=== PATIENT | male | born 1990 | race Hispanic/Latino ===

== ENCOUNTER 2025-03-07 09:19 | Inpatient (IN) | payer OTHER ==
[~2025-03-07] VITALS: Ht 188 cm; Wt 106.6 kg
--- NOTE | 2025-03-07 09:30 | ERN ---
General Chief Complaint: Chest Pain Stated Complaint: LEFT SIDE CHEST PAIN FOR "MONTHS" Time Seen by MD: 09:22 Source: patient History of Present Illness Initial Comments PATIENT IS A 34-YEAR-OLD MALE COMING IN WITH LEFT-SIDED CHEST PAIN. HE STATES THAT THE CHEST PAIN HAS BEEN ONGOING FOR GREATER THAN A MONTH HE ALSO STATES THAT HE HAS BEEN EVALUATED SEVERAL TIMES AND HE DOES NOT HAS A BAD HIS CASE OF ANXIETY. NO FEVER NO CHILLS NO NAUSEA VOMITING. Allergies: Coded Allergies: Penicillins (Unverified Allergy, Unknown, 03/07/25) Past Medical History Past Medical History: Other Past Surgical History: Other ROS Dictation CONSTITUTIONAL: NO CHILLS, NO FEVER, NO WEAKNESS, NO DIAPHORESIS, NO MALAISE. HEAD/FACE: NO SIGNS OF TRAUMA. EENT: NO EYE PAIN, NO BLURRED VISION, NO TEARING, NO DOUBLE VISION, NO EAR PAIN, NO EAR DISCHARGE, NO NOSE PAIN, NO NASAL CONGESTION, NO THROAT PAIN, NO THROAT SWELLING, NO MOUTH PAIN. RESPIRATORY: NO COUGH, NO ORTHOPNEA, NO SOB, NO STRIDOR, NO WHEEZING. CARDIOVASCULAR: NO CHEST PAIN, NO EDEMA, NO PALPITATIONS, NO SYNCOPE. GASTROINTESTINAL/ABDOMINAL: NO ABDOMINAL PAIN, NO CONSTIPATION, NO DIARRHEA, NO NAUSEA, NO VOMITING. GENITOURINARY: NO ABNORMAL DISCHARGE, NO DYSURIA, NO FREQUENT URINATION, NO HEMATURIA. NO COMPLAINTS OF PAIN IN THE GENITALS. MUSCULOSKELETAL: NO BACK PAIN, NO GOUT, NO JOINT PAIN, NO JOINT SWELLING, NO MUSCLE PAIN, NO MUSCLE STIFFNESS, NO NECK PAIN. INTEGUMENTARY: NO CHANGE IN COLOR, NO CHANGE IN HAIR/NAILS, NO DRYNESS, NO LESION, NO LUMPS, NO RASH. NEUROLOGICAL/PSYCH: NO ANXIETY, NOT DEPRESSED, NO EMOTIONAL PROBLEM, NO HEADACHE, NO NUMBNESS, NO PRE-EXISTING DEFICIT, NO HISTORY OF SEIZURES, NO TREMORS, NO WEAKNESS. HEMATOLOGIC/LYMPHATIC: NOT ANEMIC, NO HISTORY OF BLOOD CLOTS, NO APPARENT BLEEDING, NO BRUISING, GLANDS NOT SWOLLEN. ALL SYSTEMS NEGATIVE, EXCEPT NOTED. Physical Exam Physical Exam Dictation VITAL SIGNS: REVIEWED. GENERAL APPEARANCE: ALERT, ORIENTED X3, NO ACUTE DISTRESS, OBESE. HEAD AND FACE: NON-TRAUMATIC. EYES: PERRL, PINK CONJUNCTIVAS, EYELID NO TRAUMA, ANTERIOR CHAMBER CLEAR. EARS: PINNAS INTACT AND NO SIGNS OF TRAUMA OR ERYTHEMA. EAR CANALS CLEAR AND NO DISCHARGE. TMS NO ERYTHEMA. NOSE: NO DISCHARGE, NO BLEEDING. OROPHARYNX: MOUTH NORMAL, TEETH NO CARIES, TONGUE PINK. PHARYNX CLEAR, NO ERYTHEMA. TONSILS NO EXUDATES, NO ABSCESSES NOTED. MUCOUS MEMBRANE MOIST. NECK: SUPPLE, NON-TENDER, NO THYROMEGALY, NO MASSES, NO JVD, NO BRUITS. BREAST: DEFERRED. CHEST: NO TENDERNESS, NO CREPITUS, NO PARADOXICAL MOVEMENT, NO RETRACTIONS. LUNGS: CLEAR, WELL-VENTILATED, SYMMETRIC, NO RALES, NO WHEEZING, NO RHONCHI, NO STRIDOR, GOOD BREATH SOUNDS BILATERALLY. HEART: REGULAR RATE, REGULAR RHYTHM, NO MURMUR, NO GALLOPS. VASCULAR: NO PERIPHERAL EDEMA. ABDOMEN: SOFT, POSITIVE BOWEL SOUNDS, NONDISTENDED, NO GUARDING, NONTENDER, NO REBOUND, NO MASSES NO HEPATOMEGALY, NO SPLENOMEGALY, NO ALONSO'S SIGN, NO HERNIAS. RECTAL: DEFERRED. GENITAL: DEFERRED. NEUROLOGICAL: NORMAL SPEECH, GROSS MOTOR FUNCTION INTACT, GROSS SENSORY FUNCTION INTACT. MUSCULOSKELETAL: NECK NONTENDER, FULL RANGE OF MOTION, BACK NONTENDER, FULL RANGE OF MOTION. EXTREMITIES: NONTENDER, FULL RANGE OF MOTION. SKIN: COLOR PINK, DRY, NO TURGOR, NO RASH, NO LACERATIONS, NO ABRASIONS, NO CONTUSIONS. LYMPHATICS: DEFERRED. Results Laboratory and Microbiology Lab and Micro Result Laboratory Tests Test 03/07/25 10:07 03/07/25 10:16 Urine Color COLORLESS (YELLOW) Urine Appearance CLEAR (CLEAR) Urine pH 7.0 (5.0-8.0) Urine Specific [place] 1.007 (1.001-1.031) Urine Protein NEGATIVE mg/dL (NEGATIVE) Urine Glucose (UA) NEGATIVE mg/dL (NEGATIVE) Urine Ketones NEGATIVE mg/dL (NEGATIVE) Urine Occult Blood +- (TRACE) (NEGATIVE) H Urine Nitrate NEGATIVE (NEGATIVE) Urine Bilirubin NEGATIVE mg/dL (NEGATIVE) Urine Urobilinogen 0.2 mg/dL (0.2-1.0) Urine Leukocyte Esterase NEGATIVE Gildardo/uL Urine RBC 0-1 /HPF (0-1) Urine WBC None Seen /HPF (0-1) Urine Bacteria None Seen /HPF (None Seen) Urine Opiates Screen NEGATIVE (NEGATIVE) Urine Barbiturates Screen NEGATIVE (NEGATIVE) Urine Phencyclidine Screen NEGATIVE (NEGATIVE) Urine Amphetamines Screen NEGATIVE (NEGATIVE) Urine Benzodiazepines Screen NEGATIVE (NEGATIVE) Urine Cocaine Screen NEGATIVE (NEGATIVE) Urine Marijuana (THC) Screen POSITIVE (NEGATIVE) H White Blood Count 4.2 K/uL (4.8-10.8) L Red Blood Count 4.87 MIL/uL (4.50-6.20) Hemoglobin 14.6 g/dL (14.0-18.0) Hematocrit 43.1 % (42-54) Mean Corpuscular Volume 88.5 fL (79-99) Mean Corpuscular Hemoglobin 30.0 pg (27.0-33.0) Mean Corpuscular Hemoglobin Concent 33.9 g/dL (32.0-36.0) Red Cell Distribution Width 12.5 % (11.0-15.5) Platelet Count 273 K/uL (130-400) Mean Platelet Volume 10.0 fL (7.5-10.5) Immature Granulocyte % (Auto) 0.5 % (0-1) Neutrophils (%) (Auto) 56.5 % (40.0-77.0) Lymphocytes (%) (Auto) 30.0 % (21.0-51.0) Monocytes (%) (Auto) 6.7 % (3.0-13.0) Eosinophils (%) (Auto) 5.3 % (0.0-8.0) Basophils (%) (Auto) 1.0 % (0.0-5.0) Neutrophils # (Auto) 2.4 K/uL (1.8-7.7) Lymphocytes # (Auto) 1.3 K/uL (1.0-4.8) Monocytes # (Auto) 0.3 K/uL (0.1-1.0) Eosinophils # (Auto) 0.22 K/uL (0.00-0.70) Basophils # (Auto) 0.04 K/uL (0.00-0.20) Absolute Immature Granulocyte (auto 0.02 K/uL (0-1) Nucleated Red Blood Cells 0.0 % (0.0-0.19) Prothrombin Time 11.0 SEC (9.6-11.6) Prothromb Time International Ratio 1.04 (0.85-1.15) Activated Partial Thromboplast Time 26.4 SEC (26.3-35.5) Sodium Level 143 mmol/L (136-145) Potassium Level 4.1 mmol/L (3.5-5.1) Chloride Level 106 mmol/L (101-111) Carbon Dioxide Level 27 mmol/L (21-32) Blood Urea Nitrogen 13 mg/dL (7-18) Creatinine 1.0 mg/dL (0.5-1.3) Glomerular Filtration Rate Calc 101 mL/min (>90) Random Glucose 100 mg/dL (70-105) Total Calcium 9.7 mg/dL (8.5-10.1) Troponin I High Sensitivity 5 ng/L (4-75) B-Type Natriuretic Peptide 19 pg/mL (0-100) Labs Reviewed?: Yes EKG/XRAY/US/CT/MRI EKG Comment 03/07/2025 TIME 9:24 A.M. VENTRICULAR RATE 99 SINUS RHYTHM [place] [address] WAVE ELEVATION OR DEPRESSION X-RAY Comment [place] [address] [place] [id number] IMAGING REPORT Signed PATIENT: RAMILA PERALTA MR#: [id number] : 1990 SEX: M AGE: 34 LOCATION: [facility] ORDER 1 STATUS: [facility] REPORT#: [id number] SERVICE 0 REASON: CP ORDERING PHYSICIAN: FROYLAN JHONSON MD PROCEDURE: CXR1VW - CHEST 1VW Exam Type: CHEST 1VW Clinical Information: CP Comparison: None Findings: The lungs are clear of infiltrates. The heart is normal in size. The bony and soft tissue structures of the chest are unremarkable. Impression: Clear lungs. DICTATED BY: GOYO RAYGOZA MD DATE: 03/07/25 102 ELECTRONICALLY SIGNED BY: GOYO RAYGOZA MD DATE: 03/07/25 1028 [facility] MDM: DIFFERENTIAL DIAGNOSIS:ANXIETY, CANNABIS ABUSE RATIONALE: TESTS CONSIDERED AND ORDERED SECONDARY TO SHARED DECISION MAKING INCLUDE: PREVIOUS OUTSIDE RECORDS REVIEWED: OLD ER VISITS. RISK OF COMPLICATION AND/OR MORBIDITY OR MORTALITY OF PATIENT MANAGEMENT: NONE PATIENT IS A 34-YEAR-OLD MALE COMING IN TO BE EVALUATED FOR ANXIETY/PANIC ATTACK. HE STATES THAT HE HAS BEEN HAVING CHEST PAIN ON AND OFF FOR GREATER THAN ONE A MONTH. PATIENT HAS BEEN EVALUATED SEVERAL TIMES AT DIFFERENT ERS AND HAS BEEN DIAGNOSED WITH ANXIETY. PATIENT HAS BEEN ASYMPTOMATIC RECEIVED SOME ANXIOLYTICS PATIENT'S LABORATORY WAS POSITIVE FOR CANNABIS. I DID CONSULT HIM ON WAYS TO AVOID ANXIETY ATTACKS ONE OF THOSE WAYS IS TO AVOID CANNABIS ABUSE. ED Course Orders Procedure Category Date Status Time Cbc With Differential LAB 03/07/25 Complete 09:31 Prothrombin Time With LAB 03/07/25 Complete INR 09:31 B-Type Natriuretic LAB 03/07/25 Complete Peptide 09:31 Chest 1vw RAD 03/07/25 Resulted 09:31 12 Lead Ekg Tracing- EKG 03/07/25 Logged Technical 09:31 Magnesium LAB 03/07/25 In Process 09:31 Creatine Kinase, Total LAB 03/07/25 In Process 09:31 Troponin I High LAB 03/07/25 Complete Sensitivity 09:31 Urinalysis Profile LAB 03/07/25 Complete 09:31 Partial LAB 03/07/25 Complete Thromboplastin Time 09:31 Basic Metabolic Panel LAB 03/07/25 In Process 09:31 Drug Screen Urine LAB 03/07/25 Complete 09:31 Diazepam 2 Mg Tab PHA 03/07/25 Complete (Valium 2 Mg Tab) 10:00 Current Medications Medications (Trade) Dose Ordered Sig/James Route PRN Reason Start Time Stop Time Status Last Admin Dose Admin Diazepam (VALium 2 mg Tab) 2 mg ONCE ONCE PO 03/07/25 10:00 03/07/25 10:01 DC 03/07/25 10:12 Vital Signs Date Time Temp Pulse Resp B/P (MAP) Pulse Ox O2 Delivery O2 Flow Rate FiO2 03/07/25 10:33 98.2 60 16 133/88 98 Room Air* 0 21 03/07/25 09:36 98.2 85 18 148/97 98 Room Air* 0 21 03/07/25 09:21 98.2 85 18 148/97 100 Room Air 0 DX & DISP Disposition: Discharge Departure Impression: Primary Impression: Cannabis abuse Additional Impression: Anxiety Condition: Stable Additional Instructions: YOU HAVE BEEN REVIEWED IN THE EMERGENCY DEPARTMENT AT [facility] AFTER PRESENTING WITH CHEST PAIN. AFTER CONSIDERING YOUR HISTORY, YOUR RISK FACTORS, YOUR EKG AND YOUR BLOOD TEST TROPONINS, HAVE BEEN FOUND TO BE AT VERY LOW RISK LESS THAN (1 IN 100) OF HAVING A MAJOR ADVERSE CARDIAC EVENT (LIKE HEART ATTACK) IN THE NEAR FUTURE. IN THE " LOW RISK" GROUP, THE RISKS OF DOING FURTHER TESTS AND TREATMENT THE INPATIENT OUTWEIGHS THE BENEFITS. IN MANY PATIENTS IN THE LOW RISK GROUP FOR THE TEST OF ANY SORT OR UNNECESSARY, HOWEVER HE SHOULD DISCUSS THIS FURTHER WITH HIS GENERAL PRACTITIONER WHO WILL UNDERSTAND THE MEDICAL AND PERSONAL BACKGROUNDS BETTER. BECAUSE WE HAVE NEVER DECLARED YOU" NO RISK" WE WOULD SUGGEST. 1 RETURNING FOR MEDICAL REVIEW IF YOU HAVE FURTHER EPISODES OF CHEST PAIN/ARM PAIN OR OTHER CONCERNING SYMPTOMS LIKE DIZZINESS, COLLAPSE, PALPITATIONS OR SHORTNESS OF BREATH. 2. FOLLOWING UP WITH YOUR LOCAL DOCTOR WHO WILL CONSIDER THE NEED FOR FURTHER TESTING AND WILL ALSO ENSURE THAT ANY MODIFIABLE RISK FACTORS YOU MAY HAVE FOR HEART DISEASE ARE OPTIMALLY MANAGED. PATIENT WILL BE DISCHARGED IN STABLE CONDITION AT THE MOMENT DISCHARGE PATIENT STATES , NO CHEST PAIN Referrals: SELF,REFERRAL (PCP) ELIDIA ALVA MD Time of Disposition: 11:10 FROYLAN JOHNSON MD March 07, 2025 09:30
[2025-03-07] MEDS: diazePAM 2 MG TAB PO ONE (10:12)
--- NOTE | 2025-03-07 10:28 | HMCIMG ---
Exam Type: CHEST 1VW Clinical Information: CP Comparison: None Findings: The lungs are clear of infiltrates. The heart is normal in size. The bony and soft tissue structures of the chest are unremarkable. Impression: Clear lungs.
[2025-03-07 10:32] LABS: APPEARANCE,URINE CLEAR (CLEAR); BILIRUBIN,URINE NEGATIVE (NEGATIVE); COLOR,URINE COLORLESS (YELLOW); GLUCOSE, URINE (UA) NEGATIVE (NEGATIVE); KETONES,URINE NEGATIVE (NEGATIVE); LEUKOCYTE ESTERASE ,URINE NEGATIVE Leu/uL (NEGATIVE); NITRATE,URINE NEGATIVE (NEGATIVE); PROTEIN,URINE NEGATIVE (NEGATIVE); UROBILINOGEN,URINE 0.2 mg/dL (0.2-1.0)
[2025-03-07 10:33] LABS: BASOPHILS # (AUTO) 0.04 K/uL (0.00-0.20); EOSINOPHILS # (AUTO) 0.22 K/uL (0.00-0.70); EOSINOPHILS % (AUTO) 5.3 % (0.0-8.0); HEMATOCRIT 43.1 % (42-54); IMMATURE GRANULOCYTE ABSOLUTE 0.02 K/uL (0-1); LYMPHOCYTES # (AUTO) 1.3 K/uL (1.0-4.8); MEAN CORPUSCULAR HGB CONC 33.9 g/dL (32.0-36.0); MEAN CORPUSCULAR VOLUME 88.5 fL (79-99); MONOCYTES # (AUTO) 0.3 K/uL (0.1-1.0); MONOCYTES % (AUTO) 6.7 % (3.0-13.0); NEUTROPHILS # (AUTO) 2.4 K/uL (1.8-7.7); NEUTROPHILS % (AUTO) 56.5 % (40.0-77.0); PLATELET COUNT (AUTO) 273 K/uL (130-400); RED BLOOD CELL COUNT(AUTO) 4.87 MIL/uL (4.50-6.20); RED CELL DISTRIBUTION WIDTH 12.5 % (11.0-15.5); WHITE BLOOD COUNT (AUTO) 4.2 K/uL (4.8-10.8)
[2025-03-07 10:34] LABS: ADD UA MICROSCOPIC YES
[2025-03-07 10:39] LABS: BACTERIA,URINE None Seen /HPF (None Seen); MUCUS,URINE Rare LPF (None Seen); RBC,URINE 0-1 /HPF (0-1); WBC,URINE None Seen /HPF (0-1)
[2025-03-07 10:40] LABS: POTASSIUM 4.1 mmol/L (3.5-5.1)
[2025-03-07 10:42] LABS: AMPHET/METH SCREEN,URINE NEGATIVE (NEGATIVE); BARBITURATE SCREEN, URINE NEGATIVE (NEGATIVE); BENZODIAZEPINES SCREEN,URINE NEGATIVE (NEGATIVE); CANNABINOID SCREEN,URINE POSITIVE (NEGATIVE); COCAINE SCREEN,URINE NEGATIVE (NEGATIVE); OPIATE SCREEN,URINE NEGATIVE (NEGATIVE); PHENCYCLIDINE SCREEN,URINE NEGATIVE (NEGATIVE)
[2025-03-07 10:43] LABS: INR 1.04 (0.85-1.15)
[2025-03-07 10:44] LABS: PARTIAL THROMBOPLASTIN TIME 26.4 SEC (26.3-35.5)
[2025-03-07 10:57] LABS: B-TYPE NATRIURETIC PEPTIDE 19 pg/mL (0-100)
[2025-03-07] MEDS ORDERED: acetaMINOPHEN 325 MG TAB PO PRN (12:00)
[2025-03-07] MEDS ORDERED: morPHINE 2 MG SYG IVP PRN (12:00)
[2025-03-07] MEDS ORDERED: PoTASSium chloRIDE 20MEQ ER 20 MEQ ERTAB PO PRN (12:00)
[2025-03-07] MEDS ORDERED: PoTASSium chl 10% ELIXIR 20MEQ 20 MEQ/15 ML UDCUP PO PRN (12:00)
[2025-03-07] MEDS ORDERED: PoTASSium chloRIDE 20MEQ/100ML 100 ML IV PRN (12:00)
[2025-03-07] MEDS ORDERED: MAGNESIUM 2GM PREMIX 50ML 50 ML IV SCH (12:00)
--- NOTE | 2025-03-07 12:01 | HP ---
[facility] HISTORY AND PHYSICAL Date of Service: March 07, 2025 Time of Service: 12:01 HISTORY OF PRESENT ILLNESS: Date of service: 03/07/2025, patient was seen in ER room 15 34-year-old male with history of anxiety who presented to the ER with chief complaint of left-sided axillary/left-sided chest pain ongoing for about 3-4 months. Pain has been progressive in intensity and pain radiates into the left shoulder and he also reports having intermittent episodes of numbness involving the left arm and forearm. He has had episodes where the left hand becomes pale and cold as well. He has been seeing his PCP and has not seen a specialist. Reports that he may have either had a CT or MRI done about 5-6 months ago for further evaluation of the pain. Pain today was 7/10 in intensity and patient reports that he felt like he might pass out while on his way to the ER. Patient reports having history of anxiety and reports that he was being prescribed BuSpar but due to side effects, he has held the medication. Patient reports using marijuana intermittently as well. Patient reports family history of coronary artery disease, stroke, diabetes as well as lupus. Patient reports having history of seizure which he attributes to medication use and last seizure was about three years ago. Denies any recent history of seizure. Patient denies any fall, injury or chest wall trauma. Reports working out with last workout session about 3-4 days ago. Patient continues to have pain involving the left axilla left chest. Patient will be admitted as on further workup, labs showed acute rhabdomyolysis. Cardiac troponin was negative. EKG showed normal sinus rhythm with prolonged QTC. Due to underlying nonresolving symptoms, consultation with Cardiology will be requested, we will also obtain consultation with Neurology. REVIEW OF SYSTEMS CONSTITUTIONAL: Denies fevers, chills, or night sweats. No unintentional weight loss reported. NEUROLOGICAL: reports having numbness of the left upper extremity with tingling ENT: No hearing loss, otalgia, otorrhea, rhinitis, rhinorrhea, hoarseness, or sore throat. CARDIOVASCULAR: chest pain, chest wall pain PULMONARY: Denies any shortness of breath, cough, phlegm/sputum, hemoptysis, pleuritic chest pain. SLEEP: Denies morning headaches, daytime somnolence or napping. Denies difficu lty falling asleep, staying asleep, waking from sleep. Denies knowledge of snoring. GASTROINTESTINAL: Denies any type of dysphagia to either liquids or solids. Denies nausea, vomiting, pyrosis, early satiety, abdominal pain, diarrhea, constipation, or changes in stool consistency or caliber. Denies coffee-ground emesis, hematemesis, hematochezia, or melanotic stools. GENITOURINARY: Denies frequency, urgency, nocturia, hematuria or incontinence (Storage/Irritative symptoms.) Low urinary stream, straining to void, urinary intermittency or hesitancy, splitting of the voiding stream, terminal dribbling. ENDOCRINOLOGIC: Denies polyuria, polydipsia, polyphagia or heat/cold intol erances. HEMATOLOGIC: Denies thrombophilia/previous clots, or coagulopathy/bleeding disorders. ONCOLOGIC: Denies personal history of malignancy. DERMATOLOGIC: Denies rashes or pruritus. PSYCHIATRIC: Denies any suicidal or homicidal ideation. Denies hallucinations. PAST MEDICAL HISTORY: History of anxiety disorder, patient reports previous history of vertebral osteomyelitis about 10 years ago after he received contaminated injection for management of pain. Patient was hospitalized in [place] and renewed about 2-1/2 month of IV antibiotics PAST SURGICAL HISTORY: History of tonsillectomy, history of surgery for epistaxis PAST SOCIAL HISTORY: Denies significant alcohol consumption, used to vape frequently but has quit vaping, intermittently smokes marijuana FAMILY HISTORY: Family history of ME, diabetes, stroke, lupus. Grandfather had multiple MIs in his 50s-60s Allergies: Patient has allergic reaction to penicillin Home medications: Family will be bringing home medication list to be reconciled and updated Coded Allergies: Penicillins (Unverified Allergy, Unknown, 03/07/25) PHYSICAL EXAM GENERAL APPEARANCE: The patient is awake, alert, and oriented, in no acute cardiopulmonary distress. NEUROLOGICAL: Cranial nerves II-XII grossly intact. Motor is 5/5 in bilateral upper and lower extremities proximal to distal. No sensory deficits. HEENT: Face is symmetric. Pupils are equal and reactive. Extraocular movements are intact. NECK: Supple. No JVD. No thyromegaly. No submental, submandibular, pre- /postauricular, occipital or supraclavicular lymphadenopathy. CHEST: Normal chest expansion. No Telemetry. LUNGS: Absence of any rales, rhonchi or any wheezing. CARDIOVASCULAR: Regular. S1 and S2 normal. No appreciable rubs, murmurs or gallops. tenderness to palpation of the left axilla noted ABDOMEN: Soft, nontender, and nondistended. There is no rebound, voluntary guarding, or rigidity. : Deferred. No Winter. EXTREMITIES: Non-edematous and not cyanotic. No clubbing. Good capillary refill. SKIN: No skin breakdown. Vital Sign (Last 24 Hours) 03/07/25 10:33 Temp 98.2 Pulse 60 Resp 16 B/P (MAP) 133/88 Pulse Ox 98 O2 Delivery Room Air* O2 Flow Rate 0 FiO2 21 LABS: Laboratory: Test 03/07/25 10:16 03/07/25 10:07 Range/Units White Blood Count 4.2 L 4.8-10.8 K/uL Red Blood Count 4.87 4.50-6.20 MIL/uL Hemoglobin 14.6 14.0-18.0 g/dL Hematocrit 43.1 42-54 % Mean Corpuscular Volume 88.5 79-99 fL Mean Corpuscular Hemoglobin 30.0 27.0-33.0 pg Mean Corpuscular Hemoglobin Concent 33.9 32.0-36.0 g/dL Red Cell Distribution Width 12.5 11.0-15.5 % Platelet Count 273 130-400 K/uL Mean Platelet Volume 10.0 7.5-10.5 fL Immature Granulocyte % (Auto) 0.5 0-1 % Neutrophils (%) (Auto) 56.5 40.0-77.0 % Lymphocytes (%) (Auto) 30.0 21.0-51.0 % Monocytes (%) (Auto) 6.7 3.0-13.0 % Eosinophils (%) (Auto) 5.3 0.0-8.0 % Basophils (%) (Auto) 1.0 0.0-5.0 % Neutrophils # (Auto) 2.4 1.8-7.7 K/uL Lymphocytes # (Auto) 1.3 1.0-4.8 K/uL Monocytes # (Auto) 0.3 0.1-1.0 K/uL Eosinophils # (Auto) 0.22 0.00-0.70 K/uL Basophils # (Auto) 0.04 0.00-0.20 K/uL Absolute Immature Granulocyte (auto 0.02 0-1 K/uL Nucleated Red Blood Cells 0.0 0.0-0.19 % Prothrombin Time 11.0 9.6-11.6 SEC Prothromb Time International Ratio 1.04 0.85-1.15 Activated Partial Thromboplast Time 26.4 26.3-35.5 SEC Sodium Level 143 136-145 mmol/L Potassium Level 4.1 3.5-5.1 mmol/L Chloride Level 106 101-111 mmol/L Carbon Dioxide Level 27 21-32 mmol/L Blood Urea Nitrogen 13 7-18 mg/dL Creatinine 1.0 0.5-1.3 mg/dL Glomerular Filtration Rate Calc 101 >90 mL/min Random Glucose 100 70-105 mg/dL Total Calcium 9.7 8.5-10.1 mg/dL Magnesium Level 2.00 1.80-2.40 mg/dL Total Creatine Kinase 2615 *H 21-232 U/L Troponin I High Sensitivity 5 4-75 ng/L B-Type Natriuretic Peptide 19 0-100 pg/mL Urine Color COLORLESS YELLOW Urine Appearance CLEAR CLEAR Urine pH 7.0 5.0-8.0 Urine Specific [place] 1.007 1.001-1.031 Urine Protein NEGATIVE NEGATIVE mg/dL Urine Glucose (UA) NEGATIVE NEGATIVE mg/dL Urine Ketones NEGATIVE NEGATIVE mg/dL Urine Occult Blood +- (TRACE) H NEGATIVE Urine Nitrate NEGATIVE NEGATIVE Urine Bilirubin NEGATIVE NEGATIVE mg/dL Urine Urobilinogen 0.2 0.2-1.0 mg/dL Urine Leukocyte Esterase NEGATIVE NEGATIVE Gildardo/uL Urine RBC 0-1 0-1 /HPF Urine WBC None Seen 0-1 /HPF Urine Bacteria None Seen None Seen /HPF Urine Opiates Screen NEGATIVE NEGATIVE Urine Barbiturates Screen NEGATIVE NEGATIVE Urine Phencyclidine Screen NEGATIVE NEGATIVE Urine Amphetamines Screen NEGATIVE NEGATIVE Urine Benzodiazepines Screen NEGATIVE NEGATIVE Urine Cocaine Screen NEGATIVE NEGATIVE Urine Marijuana (THC) Screen POSITIVE H NEGATIVE DIAGNOSTICS / RADIOLOGY: SERVICE REASON: CP ORDERING PHYSICIAN: FROYLAN JOHNSON MD PROCEDURE: CXR1VW - CHEST 1VW Exam Type: CHEST 1VW Clinical Information: CP Comparison: None Findings: The lungs are clear of infiltrates. The heart is normal in size. The bony and soft tissue structures of the chest are unremarkable. Impression: Clear lungs. DICTATED BY: GOYO RAYGOZA MD DATE: 03/07/25 102 ELECTRONICALLY SIGNED BY: GOYO RAYGOZA MD DATE: 03/07/25 1028 ASSESSMENT: Acute rhabdomyolysis, POA Atypical chest pain ongoing for the past several months, POA Nonresolving intermittent episodes of numbness of the left upper extremity, POA Family history of lupus, POA Family history of coronary artery disease, POA Prolonged QTC, POA Presyncope, POA History of vertebral osteomyelitis about 10 years ago status post treatment, POA History of seizure with last episode being three years ago, POA History of cannabis use, POA PLAN: Patient will be admitted to medical-surgical floor under telemetry monitoring We will start IV hydration with lactated Ringer's at 150 mL/hour for management of acute rhabdomyolysis We will provide patient with a dose of Toradol to see if it helps with the pain, morphine for management of severe pain Initial troponin was noted to be negative, we will have Cardiology evaluate We will follow up 2D echocardiogram Consultation with Neurology will be requested for further evaluation of intermittent numbness of the left upper extremity, we will see if MRI is requested this admission We will obtain autoimmune serologies including JASWANT w/ reflex profile, rheumatoid factor, CCP, we will obtain blood cultures, we will inflammatory markers including ESR, CRP, TSH We will see how patient progresses in the next 48-72 hours All labs will be repeated in the morning Date of service: 03/07/2025 Rohan Daniels Advanced Care Planning: Which of the following were discussed: Hospice care: Yes __ No _x_ Therapeutic options: Yes _x_ No __ Advance directives: Yes _x_ No __ Other discussions: Discussed with who?: Patient Voluntary nature of this service was explained to the patient? Yes _x_ No __ Amount of time spent: 20 minutes ROHAN DANIELS MD March 07, 2025 12:01
[2025-03-07] MEDS: 0.9%NACL 1000ML 1,000 ML IV ONE (12:56)
[2025-03-07] MEDS: LACTATED RINGERS 1000ML 1,000 ML IV SCH (13:12)
[2025-03-07] MEDS: FAMOTIDINE 20MG VIAL IV SCH (13:12)
[2025-03-07] MEDS: ketOROlac 15MG/ML VIAL (15MG/ML) IV ONE (13:13)
[2025-03-07 13:21] LABS: ALBUMIN 4.9 g/dL (3.5-5.0); BILIRUBIN,DIRECT 0.1 mg/dL (0.0-0.3); BILIRUBIN,TOTAL 0.6 mg/dL (0.2-1.0); MAGNESIUM 2.2 mg/dL (1.80-2.40); THYROID STIMULATING HORMONE 1.33 uIU/mL (0.36-3.74); TOTAL PROTEIN, SERUM 8.8 g/dL (6.0-8.3)
--- NOTE | 2025-03-07 13:34 | ERN ---
Tele-Neurology Note Tele-Neurology Note [facility] Note # Demographics Consult Type: General Neurology Patient Location: Inpatient First Name: RAMILA Last Name: KATHRYN Date of : 1990 Age: 34 Gender: Male Facility: [facility] Time of Initial Page (Central Time): 03/07/2025 12:17 Time of Return Call (Central Time): 03/07/2025 12:18 # HPI Chief Complaint: Left arm pain History: 34 y/o male presented with several months of left arm pain and left chest tightness. Patient specifically describes left arm pit sharp pain, radiates down his left upper extremity, intermittent left chest tightness. He reports that he has been x-rayed as outpatient and has been treated with gabapentin w/o any significant improvement. He also started working out about 2 weeks ago, doing mostly cardio and not lifting weights in excess of 50 pounds # Scores Time of exam and NIHSS (Central Time): 03/07/2025 12:25 Level of Consciousness 1a: [0] = Alert; keenly responsive LOC Questions 1b: [0] = Answers both questions correctly LOC Commands 1c: [0] = Performs both tasks correctly Best Gaze 2: [0] = Normal Visual 3: [0] = No visual loss Facial Palsy 4: [0] = Normal symmetrical movements Motor Arm Left 5a: [0] = No drift Motor Arm Right 5b: [0] = No drift Motor Leg Left 6a: [0] = No drift Motor Leg Right 6b: [0] = No drift Limb Ataxia 7: [0] = Absent Sensory 8: [0] = Normal Best Language 9: [0] = No aphasia Dysarthria 10: [0] = Normal Extinction and Inattention 11: [0] = No abnormality NIHSS Total: 0 # Exam Time of Exam (Central Time): 03/07/2025 12:25 Additional Neurologic Exam: NO focal neurologic deficit on exam, no muscle atrophy, no muscle weakness, just LUE and left chest pain # Assessment Impression: Impression: -Concern for Left Brachial Plexopathy # Plan Modified [place] Scale (mRS) pre-stroke: [1] = No significant disability despite symptoms; able to carry out all usual duties and activities. Target Blood Pressure: SBP < 140 Imaging: (urgency: routine): - MRI C spine MRI Left Brachial plexus wo/w contrast Medication: May start Duloxetine 30mg daily, as he has taken Gabapentin in the past w/o relief Other: - If patient has any neurological deterioration please call me back immediately Additional Recommendations: -PT/OT evaluation # Demographics First Name: RAMILA Last Name: KATHRYN Facility: [facility] WILBUR CARPIO MD March 07, 2025 13:34
[2025-03-07] MEDS: hydroMORPHone 0.5 MG SYG (0.5MG/0.5ML) IVP PRN (14:36)
--- NOTE | 2025-03-07 14:46 | NUR ---
DCP: HOME Pt currently resides with his ed[place] [phone]. Pt currently works at [employer] and denied any insecurities with food, long term, and/or utilities. Pt does not have any DME, home health, and/or provider services. Pt is able to complete ADLs independently. PCP is Dr. Liang and uses [facility] for any RX needs. At [place] pt will return home and family will assist with transportation. Addendum: 03/07/25 at 1449 by AJ ABRAHAM SS Amended: Links added.
--- NOTE | 2025-03-07 14:55 | NUR ---
REPORT GIVEN TO MIROSLAVA
[2025-03-07 15:15] VITALS: BP 123/78; PULSE 57; RESP 20; TEMP 97.9
--- NOTE | 2025-03-07 15:18 | EKG ---
[facility] Test Date: 2025-03-07 Test Time: 09:24:56 Pat Name: RAMILA PERALTA Department: [facility] Room: 427 Gender: M Staff Development Coordinator Rn: [id number] : 1990 Requested By: FROYLAN JOHNSON Order Number: [id number] Reading MD: Augustin Taylor Measurements Intervals [place] Rate: 99 P: 44 [place]: 155 QRS: 82 QRSD: 99 T: 48 QT: 383 QTc: 491 Interpretive Statements Sinus rhythm Prolonged QT interval No previous ECG available for comparison Electronically Signed On 03-09-2025 13:04:05 CDT by Augustin Taylor Please click the below link to view image of tracing.
--- NOTE | 2025-03-07 18:27 | CONS ---
CONSULT NOTE: [facility] CARDIOLOGY Reason for consult: Atypical left-sided arm numbness, chest discomfort HPI/story at presentation: This is a pleasant 34-year-old male with past medical history as below started to have issues with left-sided arm numbness, atypical pain, shortness of breath, flushing feeling and came to the ER for further evaluation management. Has a history of anxiety and a family history of lupus Subjective: 03/07/2025 no active cardiac complaints Past medical history: See below Allergies, Meds See chart Review of systems Review of Systems Constitutional: Negative for chills and fever. HENT: Negative for ear discharge and ear pain. Eyes: Negative for photophobia and discharge. Respiratory: Negative for cough, sputum production and stridor. Cardiovascular: Negative for chest pain and palpitations. Gastrointestinal: Negative for diarrhea and vomiting. Genitourinary: Negative for frequency. Musculoskeletal: Negative for myalgias. Skin: Negative for rash. Neurological: Negative for focal weakness and seizures. Endo/Heme/Allergies: Negative for polydipsia. Psychiatric/Behavioral: Negative for hallucinations. Vitals see chart PHYSICAL EXAMINATION GENERAL: The patient is alert and oriented*3 HEENT: Nonicteric sclerae, non traumatic HEART: Regular rate and rhythm with no murmurs LUNGS: Clear to auscultation bilaterally ABDOMEN: No acute issues, non tender GENITAL, RECTAL: deferred SKIN: No rash NEUROLOGIC: NFND EXTREMITIES: No edema ASSESSMENT ATYPICAL CHEST PAIN With associated diaphoresis/feeling TIA-like features Left upper extremity numbness RHABDOMYOLYSIS Elevated CK presentation Recently started working CORE MEASURES OTHER MEDICAL PROBLEMS Family history of lupus PLAN 03/07/2025 will get a coronary CTA to further evaluate for any potential cardiovascular source of symptoms although, symptoms are fairly atypical. Agree with rheumatological and other related workup. Echocardiogram was within normal limits. Seen and examined by 925 around 1800. ATTESTATION I was involved substantially in the care of this patient Number and complexity of problems addressed: 1 acute illness with systemic features Amount and or complexity of data Review of prior external note(s) from each unique source: 2+ Ordering of each unique test : 0 Review of the result(s) of each unique test: 2+ Assessment requiring an independent historian(s): No Independent interpretation of test performed by another MD/QHCP/appropriate source (not separately reported) : No Discussion of management or test interpretation with external MD/QHCP/appropriate source (not separately reported) : No Risk status (cardiac, billing related):Moderate RAFAEL PORTILLO MD March 07, 2025 18:27
[2025-03-07 18:39] VITALS: O2SAT 96
[2025-03-07] MEDS: hydroMORPHone 0.5 MG SYG (0.5MG/0.5ML) IVP ONE (18:58)
[2025-03-07 20:00] VITALS: BP 119/79; PULSE 59; RESP 16; TEMP 97.9; O2SAT 99
[2025-03-08] VITALS (8 sets, daily range): BP systolic 110–136; BP diastolic 76–91; PULSE 55–62; RESP 17–19; TEMP 97.6–98.4; O2SAT 99
[2025-03-08 05:58] LABS: BASOPHILS # (AUTO) 0.05 K/uL (0.00-0.20); BASOPHILS % (AUTO) 0.9 % (0.0-5.0); EOSINOPHILS # (AUTO) 0.47 K/uL (0.00-0.70); HEMATOCRIT 37.9 % (42-54); IMMATURE GRANULOCYTE ABSOLUTE 0.02 K/uL (0-1); LYMPHOCYTES # (AUTO) 2.3 K/uL (1.0-4.8); MEAN CORPUSCULAR HEMOGLOBIN 30.1 pg (27.0-33.0); MEAN CORPUSCULAR HGB CONC 33.2 g/dL (32.0-36.0); MEAN CORPUSCULAR VOLUME 90.7 fL (79-99); MONOCYTES # (AUTO) 0.6 K/uL (0.1-1.0); MONOCYTES % (AUTO) 9.4 % (3.0-13.0); NEUTROPHILS # (AUTO) 2.5 K/uL (1.8-7.7); NEUTROPHILS % (AUTO) 42.4 % (40.0-77.0); PLATELET COUNT (AUTO) 220 K/uL (130-400); RED BLOOD CELL COUNT(AUTO) 4.18 MIL/uL (4.50-6.20); RED CELL DISTRIBUTION WIDTH 12.8 % (11.0-15.5); WHITE BLOOD COUNT (AUTO) 5.8 K/uL (4.8-10.8)
[2025-03-08 06:32] LABS: ALBUMIN 3.5 g/dL (3.5-5.0); BILIRUBIN,TOTAL 0.4 mg/dL (0.2-1.0); CREATININE 0.9 mg/dL (0.5-1.3); POTASSIUM 4.3 mmol/L (3.5-5.1); TOTAL PROTEIN, SERUM 6.5 g/dL (6.0-8.3)
--- NOTE | 2025-03-08 06:32 | NUR ---
lab notified ck [id number] trending down from above 2600
[2025-03-08 08:13] LABS: RHEUMATOID ARTHRITIS FACTOR <10.0 IU/mL (<14.0)
[2025-03-08] MEDS: ENOXAPARIN SODIUM 40 MG/0.4 ML SYRINGE SQ SCH (08:50)
--- NOTE | 2025-03-08 09:31 | HMCIMG ---
Exam Type: MRI OF THE CERVICAL SPINE with and without GADOLINIUM and MRI of the shoulder with special attention to the left brachial plexus Clinical Information: r/o left brachial plexus injury, hx of numbness and pain to left shoulder Comparison: None FINDINGS: There is straightening of the spine consistent with spasm No fractures or dislocations are identified. Vertebral body height and disc height is preserved at all levels. The bone marrow signal is normal for age. The spinal canal contents are preserved. The paraspinal muscles and other tissues show no significant abnormalities. Evaluation of the cervical spine by level: C1-C2: There is no spinal canal stenosis. No disc protrusion or extrusion is noted. There is no neural foraminal stenosis, impingement, or narrowing. C2-C3: There is no spinal canal stenosis. No disc protrusion or extrusion is noted. There is no neural foraminal stenosis, impingement, or narrowing. C3-C4: There is no spinal canal stenosis. No disc protrusion or extrusion is noted. There is no neural foraminal stenosis, impingement, or narrowing. C4-C5: There is no spinal canal stenosis. No disc protrusion or extrusion is noted. There is no neural foraminal stenosis, impingement, or narrowing. C5-C6: There is no spinal canal stenosis. No disc protrusion or extrusion is noted. There is no neural foraminal stenosis, impingement, or narrowing. C6-C7: There is a central zone disc protrusion causing mild central spinal canal stenosis. No nerve root impingement is seen. C7-T1: There is no spinal canal stenosis. No disc protrusion or extrusion is noted. There is no neural foraminal stenosis, impingement, or narrowing. The structures of the brachial plexus on the left side are intact. There is no evidence of nerve root avulsion. No evidence of injury of the brachial plexus is identified. After contrast administration there is no abnormal enhancement. Impression: Mild central zone disc protrusion C6-7. No brachial plexus injury.
--- NOTE | 2025-03-08 09:46 | HMCSR ---
APPROVED REPORT EXAM: Two-dimensional and M-mode echocardiogram with Doppler and color Doppler. INDICATION ICD: Chest Pain 2D Dimensions RVDd3.5 cmLVEF(%)68.6 (>50%)LVED Vol(simp.)130.0 mL IVSd0.9 (0.7-1.1cm)FS(%)39 %LVES Vol(simp.)48.0 mL LVDd5.4 (3.8-5.6cm)LA (2D)4.2 (1.6-4.0cm)LVEF(%, simp.)63 % PWd1.3 (0.7-1.1cm)Ao Root(2D)3.1 (2.0-3.7cm)LA ESV INDEX (BP)47.79 mL/m2 LVDs3.3 (2.5-4.0cm)LVOT diam2.4 (1.8-2.4cm) IVC diam2.5 cm Deformation Strain Apical 4-18.6 % Apical 2-17.3 % Apical 3-20.1 % Global Strain-18.7 % M-Mode Dimensions EPSS1.0 cm LA (MM)4.4 (1.6-4.0cm) Ao Root(MM)3.4 (2.0-3.7cm) Aortic Valve AoV Vmax1.2 m/Katie Peak GR6.2 mmHgLVOT Vmax1.2 m/s AoV VTI0.3 mAo Mean GR3.4 mmHgLVOT VTI0.26 m LES (VMAX)4.11 cm2AVA (VTI) 4.1 cm2 Mitral Valve MV E Vmax68.5 cm/sDECEL [id number] ms MV A Vmax51.3 cm/sP 1/2 T64 ms E/A ratio1.3MVA (PHT)3.5 cm2 TDI E/E' Medial6.3E/E' Lateral5.0 Medial E' Peak V10.82 cm/sLateral E' Peak V13.60 cm/s Pulmonary Valve PV Vmax0.8 m/sPV VTI0.23 mPV Mean GR1.8 mmHg PV Peak GR2.8 mmHg Tricuspid Valve TR Vmax1.7 m/sRVSP11.5 mmHg TR Peak GR11.5 mmHg Left Ventricle The left ventricle is normal size. Normal wall motion There is normal left ventricular wall thickness . LVEF is 60-65%. The left ventricular diastolic function is normal. Right Ventricle The right ventricle is normal size. The right ventricular systolic function is normal. Atria The left atrium is moderately dilated. The right atrium is moderately dilated. Aortic Valve The aortic valve is normal in structure. No aortic regurgitation is present. There is no aortic valvu lar stenosis. Mitral Valve The mitral valve is normal in structure. There is no mitral valve regurgitation noted. There is no mi tral valve stenosis. Tricuspid Valve The tricuspid valve is normal in structure. There is mild tricuspid valve regurgitation noted. Pulmonic Valve The pulmonary valve is normal in structure. There is no pulmonic valvular regurgitation. Great Vessels The aortic root is normal in size. The IVC is dilated and collapses >50% with inspiration. Pericardium There is no pericardial effusion. Conclusion LVEF is 60-65%. The left ventricular diastolic function is normal. There is normal left ventricular wall thickness. The left ventricle is normal size. The left atrium is moderately dilated. There is no pericardial effusion. Normal pulmonary pressuers Study quality was adequate
--- NOTE | 2025-03-08 14:04 | PN ---
[facility] PROGRESS NOTE Date of Service: March 08, 2025 Time of Service: 14:03 SUBJECTIVE: [ ] 03/08 patient was seen and examined. He appears comfortable but complains of left sided pain especially near the armpit. He denies any other complaint REVIEW OF SYSTEMS CONSTITUTIONAL: Denies fevers, chills, or night sweats. No unintentional weight loss reported. NEUROLOGICAL: reports having numbness of the left upper extremity with tingling ENT: No hearing loss, otalgia, otorrhea, rhinitis, rhinorrhea, hoarseness, or sore throat. CARDIOVASCULAR: chest pain, chest wall pain PULMONARY: Denies any shortness of breath, cough, phlegm/sputum, hemoptysis, pleuritic chest pain. SLEEP: Denies morning headaches, daytime somnolence or napping. Denies difficulty falling asleep, staying asleep, waking from sleep. Denies knowledge of snoring. GASTROINTESTINAL: Denies any type of dysphagia to either liquids or solids. Denies nausea, vomiting, pyrosis, early satiety, abdominal pain, diarrhea, constipation, or changes in stool consistency or caliber. Denies coffee-ground emesis, hematemesis, hematochezia, or melanotic stools. GENITOURINARY: Denies frequency, urgency, nocturia, hematuria or incontinence (Storage/Irritative symptoms.) Low urinary stream, straining to void, urinary intermittency or hesitancy, splitting of the voiding stream, terminal dribbling. ENDOCRINOLOGIC: Denies polyuria, polydipsia, polyphagia or heat/cold intolerances. HEMATOLOGIC: Denies thrombophilia/previous clots, or coagulopathy/bleeding disorders. ONCOLOGIC: Denies personal history of malignancy. DERMATOLOGIC: Denies rashes or pruritus. PSYCHIATRIC: Denies any suicidal or homicidal ideation. Denies hallucinations. PHYSICAL EXAM GENERAL APPEARANCE: The patient is awake, alert, and oriented, in no acute cardiopulmonary distress. NEUROLOGICAL: Cranial nerves II-XII grossly intact. Motor is 5/5 in bilateral upper and lower extremities proximal to distal. No sensory deficits. HEENT: Face is symmetric. Pupils are equal and reactive. Extraocular movements are intact. NECK: Supple. No JVD. No thyromegaly. No submental, submandibular, pre- /postauricular, occipital or supraclavicular lymphadenopathy. CHEST: Normal chest expansion. No Telemetry. LUNGS: Absence of any rales, rhonchi or any wheezing. CARDIOVASCULAR: Regular. S1 and S2 normal. No appreciable rubs, murmurs or gallops. tenderness to palpation of the left axilla noted ABDOMEN: Soft, nontender, and nondistended. There is no rebound, voluntary guarding, or rigidity. : Deferred. No Winter. EXTREMITIES: Non-edematous and not cyanotic. No clubbing. Good capillary refill. SKIN: No skin breakdown. Vital Signs (last 8hr) Date Time Temp Pulse Resp B/P (MAP) Pulse Ox O2 Delivery O2 Flow Rate FiO2 03/08/25 11:44 97.5 56 19 110/76 99 Room Air 03/08/25 08:00 99 Room Air* 0 21 03/08/25 07:40 97.9 57 18 111/78 99 Room Air LABS: Laboratory: Test 03/08/25 05:39 03/07/25 12:40 03/07/25 10:16 03/07/25 10:07 Range/Units White Blood Count 5.8 # 4.8-10.8 K/uL Red Blood Count 4.18 L 4.50-6.20 MIL/uL Hemoglobin 12.6 L 14.0-18.0 g/dL Hematocrit 37.9 L 42-54 % Mean Corpuscular Volume 90.7 79-99 fL Mean Corpuscular Hemoglobin 30.1 27.0-33.0 pg Mean Corpuscular Hemoglobin Concent 33.2 32.0-36.0 g/dL Red Cell Distribution Width 12.8 11.0-15.5 % Platelet Count 220 130-400 K/uL Mean Platelet Volume 9.9 7.5-10.5 fL Immature Granulocyte % (Auto) 0.3 0-1 % Neutrophils (%) (Auto) 42.4 40.0-77.0 % Lymphocytes (%) (Auto) 39.0 21.0-51.0 % Monocytes (%) (Auto) 9.4 3.0-13.0 % Eosinophils (%) (Auto) 8.0 0.0-8.0 % Basophils (%) (Auto) 0.9 0.0-5.0 % Neutrophils # (Auto) 2.5 1.8-7.7 K/uL Lymphocytes # (Auto) 2.3 1.0-4.8 K/uL Monocytes # (Auto) 0.6 0.1-1.0 K/uL Eosinophils # (Auto) 0.47 0.00-0.70 K/uL Basophils # (Auto) 0.05 0.00-0.20 K/uL Absolute Immature Granulocyte (auto 0.02 0-1 K/uL Nucleated Red Blood Cells 0.0 0.0-0.19 % Sodium Level 141 136-145 mmol/L Potassium Level 4.3 3.5-5.1 mmol/L Chloride Level 105 101-111 mmol/L Carbon Dioxide Level 29 21-32 mmol/L Blood Urea Nitrogen 12 7-18 mg/dL Creatinine 0.9 0.5-1.3 mg/dL Glomerular Filtration Rate Calc 114 >90 mL/min Random Glucose 90 70-105 mg/dL Total Calcium 8.5 8.5-10.1 mg/dL Magnesium Level 2.00 1.80-2.40 mg/dL Total Bilirubin 0.4 # 0.2-1.0 mg/dL Aspartate Amino Transf (AST/SGOT) 63 H 10-37 U/L Alanine Aminotransferase (ALT/SGPT) 44 # 12-78 U/L Alkaline Phosphatase 55 50-136 U/L Total Creatine Kinase 1295 #*H 21-232 U/L Total Protein 6.5 # 6.0-8.3 g/dL Albumin 3.5 # 3.5-5.0 g/dL Direct Bilirubin 0.1 0.0-0.3 mg/dL Lactate Dehydrogenase 209 81-234 U/L C-Reactive Protein, Quantitative 3.00 0.5-3.0 mg/L Procalcitonin < 0.05 L 0.05-0.5 ng/mL Thyroid Stimulating Hormone (TSH) 1.33 0.36-3.74 uIU/mL Free Thyroxine (T4) Direct 0.96 0.76-1.46 ng/dL Free Triiodothyronine (T3) pg/mL 2.44 2.18-3.98 pg/mL Erythrocyte Sedimentation Rate 9 0-15 MM/HR Prothrombin Time 11.0 9.6-11.6 SEC Prothromb Time International Ratio 1.04 0.85-1.15 Activated Partial Thromboplast Time 26.4 26.3-35.5 SEC Troponin I High Sensitivity 5 4-75 ng/L B-Type Natriuretic Peptide 19 0-100 pg/mL Rheumatoid Factor <10.0 <14.0 IU/mL Anti-Nuclear Antibody Screen Negative Negative MINERVA-1 Antibody SS-A/Ro Antibody SS-B/La Antibody Sm (Sanches) IgG Antibody, Quant TOWER [employer]EMAN IgG Antibody, Quantitative Scl-70 (Scleroderma) Antibody Anti-Double Strand DNA Antibody Anti-Centromere IgG Antibody Urine Color COLORLESS YELLOW Urine Appearance CLEAR CLEAR Urine pH 7.0 5.0-8.0 Urine Specific [place] 1.007 1.001-1.031 Urine Protein NEGATIVE NEGATIVE mg/dL Urine Glucose (UA) NEGATIVE NEGATIVE mg/dL Urine Ketones NEGATIVE NEGATIVE mg/dL Urine Occult Blood +- (TRACE) H NEGATIVE Urine Nitrate NEGATIVE NEGATIVE Urine Bilirubin NEGATIVE NEGATIVE mg/dL Urine Urobilinogen 0.2 0.2-1.0 mg/dL Urine Leukocyte Esterase NEGATIVE NEGATIVE Gildardo/uL Urine RBC 0-1 0-1 /HPF Urine WBC None Seen 0-1 /HPF Urine Bacteria None Seen None Seen /HPF Urine Opiates Screen NEGATIVE NEGATIVE Urine Barbiturates Screen NEGATIVE NEGATIVE Urine Phencyclidine Screen NEGATIVE NEGATIVE Urine Amphetamines Screen NEGATIVE NEGATIVE Urine Benzodiazepines Screen NEGATIVE NEGATIVE Urine Cocaine Screen NEGATIVE NEGATIVE Urine Marijuana (THC) Screen POSITIVE H NEGATIVE Current Medications Medications (Trade) Dose Ordered Sig/James Route PRN Reason Start Time Stop Time Status Last Admin Dose Admin Acetaminophen (TYLenol 325MG TAB) 650 mg Q6H PRN PO MILD PAIN (1-3) 03/07/25 12:00 04/06/25 11:59 Enoxaparin Sodium (Lovenox) 40 mg DAILY SQ 03/08/25 09:00 04/07/25 08:59 03/08/25 08:50 40 MG Famotidine (Pepcid 20mg Vial) 20 mg Q12H IV 03/07/25 12:00 04/06/25 11:59 03/08/25 13:10 20 MG Hydromorphone HCl (DiLAUDid 0.5MG INJ) 0.5 mg Q6H PRN IVP SEVERE PAIN (7-10) 03/07/25 14:00 03/12/25 13:59 03/08/25 13:10 0.5 MG Lactated Ringer's 1,000 ml @ 150 mls/hr Q6H40M IV 03/07/25 12:00 04/06/25 11:59 03/08/25 08:50 150 MLS/HR Magnesium Sulfate 50 ml @ 0 mls/hr PROTOCOL IV 03/07/25 12:00 04/06/25 11:59 Morphine Sulfate (morPHINE 2MG SYG) 2 mg Q6H PRN IVP SEVERE PAIN (7-10) 03/07/25 12:00 03/07/25 13:46 DC Potassium Chloride 100 ml @ 100 mls/hr AD PRN IV POTASSIUM PROTOCOL 03/07/25 12:00 04/06/25 11:59 Potassium Chloride (K-Dur/Klor-Con 20meq) 20 meq AD PRN PO POTASSIUM PROTOCOL 03/07/25 12:00 04/06/25 11:59 Potassium Chloride (KCl 10% Elixir 20meq/15ml) 20 meq AD PRN PO POTASSIUM PROTOCOL 03/07/25 12:00 04/06/25 11:59 DIAGNOSTICS / RADIOLOGY: [ ] ASSESSMENT: Acute rhabdomyolysis, POA Atypical chest pain ongoing for the past several months, POA Nonresolving intermittent episodes of numbness of the left upper extremity, POA Family history of lupus, POA Family history of coronary artery disease, POA Prolonged QTC, POA Presyncope, POA History of vertebral osteomyelitis about 10 years ago status post treatment, POA History of seizure with last episode being three years ago, POA History of cannabis use, POA PLAN: Patient will be admitted to medical-surgical floor under telemetry monitoring We will start IV hydration with lactated Ringer's at 150 mL/hour for management of acute rhabdomyolysis We will provide patient with a dose of Toradol to see if it helps with the pain, morphine for management of severe pain Initial troponin was noted to be negative, we will have Cardiology evaluate We will follow up 2D echocardiogram Consultation with Neurology will be requested for further evaluation of intermittent numbness of the left upper extremity, we will see if MRI is requested this admission We will obtain autoimmune serologies including JASWANT w/ reflex profile, rheumatoid factor, CCP, we will obtain blood cultures, we will inflammatory markers including ESR, CRP, TSH We will see how patient progresses in the next 48-72 hours All labs will be repeated in the morning Date of service: 03/07/2025 Rohan Daniels Advanced Care Planning: Which of the following were discussed: Hospice care: Yes __ No _x_ Therapeutic options: Yes _x_ No __ Advance directives: Yes _x_ No __ Other discussions: Discussed with who?: Patient Voluntary nature of this service was explained to the patient? Yes _x_ No __ Amount of time spent: 20 minutes BALA SULLIVAN MD March 08, 2025 14:04
--- NOTE | 2025-03-08 16:50 | NUR ---
HAD NOTIFIED DR Milner REGARDING PATIENT C/O OF PAIN TO LEFT SHOULDER AND DILAUDED NOT DUE . PER MD NEW ORDER GIVEN FOR TORADOL 30MG Q8PRN IV FOR THE BREAKTHRU PAIN .. EXPLAINED TO PATIENT ON PAIN MED .PER PATIENT STATED " TORADOL WILL NOT HELP ME ALL IS GOING TO DO IS ADD TO MY BILL I RATHER WAIT FOR THE DILAUDID". INFORMED HIM AT THIS TIME PER MD THIS IS THE OTHER OPTION TO HELP HIM WITH HIS PAIN IN BETWEEN OTHER IF NEEDED . PATIENT CONTINUED TO REFUSE AND STATE "I WANT TO SPEAK WITH THE DOCTOR ". MESSAGED MD ON PATIENT INSISTING TO SPEAK WITH HIM ON HIS PAIN , NO NEW ORDERS GIVEN AT THIS TIME .
--- NOTE | 2025-03-08 19:34 | NUR ---
PATIENT ON PHONE NO SIGNS OF DISTRESS OBSERVED . EXPLAINED TO PATIENT IF HIS PAIN SUBSIDED ,PER PATIENT STATED HE IS WAITING ON THE DOCTOR TO LET HIM KNOW TORADOL DOESN'T HELP AND STATED "YOU SHOULD LOOK AT MY RECORDS FROM PAST VISITS TO THE OTHER HOSPITALS ON WHAT I HAVE TAKEN BEFORE". I ASKED HIM ON HIS PAIN SCORE . PER PT STATED "YOU SHOULD KNOW BY NOW WHAT MY PAIN SCORE IS FROM YEST AND TODAY ALREADY ". WHEN ASKED AGAIN PATIENT STATED "IS A 7 OR 8 WHATEVER IT WAS BEFORE " DILUADED GIVEN PER PRN ORDER .
--- NOTE | 2025-03-08 21:55 | PN ---
CARDIOLOGY Reason for consult: Atypical left-sided arm numbness, chest discomfort HPI/story at presentation: This is a pleasant 34-year-old male with past medical history as below started to have issues with left-sided arm numbness, atypical pain, shortness of breath, flushing feeling and came to the ER for further evaluation management. Has a history of anxiety and a family history of lupus Subjective: 03/07/2025 no active cardiac complaints Past medical history: See below Allergies, Meds See chart Review of systems Review of Systems Constitutional: Negative for chills and fever. HENT: Negative for ear discharge and ear pain. Eyes: Negative for photophobia and discharge. Respiratory: Negative for cough, sputum production and stridor. Cardiovascular: Negative for chest pain and palpitations. Gastrointestinal: Negative for diarrhea and vomiting. Genitourinary: Negative for frequency. Musculoskeletal: Negative for myalgias. Skin: Negative for rash. Neurological: Negative for focal weakness and seizures. Endo/Heme/Allergies: Negative for polydipsia. Psychiatric/Behavioral: Negative for hallucinations. Vitals see chart PHYSICAL EXAMINATION GENERAL: The patient is alert and oriented*3 HEENT: Nonicteric sclerae, non traumatic HEART: Regular rate and rhythm with no murmurs LUNGS: Clear to auscultation bilaterally ABDOMEN: No acute issues, non tender GENITAL, RECTAL: deferred SKIN: No rash NEUROLOGIC: NFND EXTREMITIES: No edema ASSESSMENT ATYPICAL CHEST PAIN With associated diaphoresis/feeling TIA-like features Left upper extremity numbness RHABDOMYOLYSIS Elevated CK presentation Recently started working CORE MEASURES OTHER MEDICAL PROBLEMS Family history of lupus PLAN 03/07/2025 will get a coronary CTA to further evaluate for any potential cardiovascular source of symptoms although, symptoms are fairly atypical. Agree with rheumatological and other related workup. Echocardiogram was within normal limits. Seen and examined by 925 around 1800. 03/08/2025 Echocardiogram is normal, CTA coronary has been ordered and pending. Further recs post. Seen and examined 03/08/2025 around 1800. ATTESTATION I was involved substantially in the care of this patient Number and complexity of problems addressed: 1 acute illness with systemic features Amount and or complexity of data Review of prior external note(s) from each unique source: 2+ Ordering of each unique test : 0 Review of the result(s) of each unique test: 2+ Assessment requiring an independent historian(s): No Independent interpretation of test performed by another MD/QHCP/appropriate source (not separately reported) : No Discussion of management or test interpretation with external MD/QHCP/appropriate source (not separately reported) : No Risk status (cardiac, billing related):Moderate Vitals/Labs Vital Signs Date Time Temp Pulse Resp B/P (MAP) Pulse Ox O2 Delivery O2 Flow Rate FiO2 03/08/25 16:29 98.4 61 18 136/91 100 Room Air 03/08/25 08:00 0 21 Laboratory Tests 03/08/25 05:39 Medications Current Medications Diazepam 2 mg ONCE ONCE PO Last administered on 03/07/25at 10:12; Start 03/07/25 at 10:00; Stop 03/07/25 at 10:01; Status DC Sodium Chloride 1,000 ml @ 0 mls/hr ONCE ONCE IV Last administered on 03/07/25at 12:56; Start 03/07/25 at 11:30; Stop 03/07/25 at 11:33; Status DC Ketorolac Tromethamine 15 mg ONCE ONCE IV Last administered on 03/07/25at 13:13; Start 03/07/25 at 12:00; Stop 03/07/25 at 12:19; Status DC Acetaminophen 650 mg Q6H PRN PO; Start 03/07/25 at 12:00; Stop 04/06/25 at 11:59 Lactated Ringer's 1,000 ml @ 150 mls/hr Q6H40M IV Last administered on 03/08/25at 20:48; Start 03/07/25 at 12:00; Stop 04/06/25 at 11:59 Famotidine 20 mg Q12H IV Last administered on 03/08/25at 13:10; Start 03/07/25 at 12:00; Stop 04/06/25 at 11:59 Morphine Sulfate 2 mg Q6H PRN IVP; Start 03/07/25 at 12:00; Stop 03/07/25 at 13:46; Status DC Potassium Chloride 100 ml @ 100 mls/hr AD PRN IV; Start 03/07/25 at 12:00; Stop 04/06/25 at 11:59 Potassium Chloride 20 meq AD PRN PO; Start 03/07/25 at 12:00; Stop 04/06/25 at 11:59 Potassium Chloride 20 meq AD PRN PO; Start 03/07/25 at 12:00; Stop 04/06/25 at 11:59 Magnesium Sulfate 50 ml @ 0 mls/hr PROTOCOL IV; Start 03/07/25 at 12:00; Stop 04/06/25 at 11:59 Enoxaparin Sodium 40 mg DAILY SQ Last administered on 03/08/25at 08:50; Start 03/08/25 at 09:00; Stop 04/07/25 at 08:59 Hydromorphone HCl 0.5 mg Q6H PRN IVP Last administered on 03/08/25at 19:21; Start 03/07/25 at 14:00; Stop 03/12/25 at 13:59 Hydromorphone HCl 0.5 mg ONCE ONCE IVP Last administered on 03/07/25at 18:58; Start 03/07/25 at 18:30; Stop 03/07/25 at 18:31; Status DC Ketorolac Tromethamine 30 mg Q8H6 PRN IVP; Start 03/08/25 at 17:00; Stop 03/13/25 at 16:59 RAFAEL PORTILLO MD March 08, 2025 21:55
[2025-03-09] VITALS (8 sets, daily range): BP systolic 108–143; BP diastolic 63–89; PULSE 52–73; RESP 17–20; TEMP 97.5–98.4; O2SAT 98–99
[2025-03-09] MEDS: ketOROlac 30MG VIAL (30MG/ML) IVP PRN (03:53)
--- NOTE | 2025-03-09 05:11 | NUR ---
NURSE NOTE PLAN OF CARE REVIEWED WITH PATIENT IN THE BEGINNING OF SHIFT. PATIENT INSISTED THAT PRN TORADOL WOULD NOT HELP HIM DUE TO HIM RECEIVING IT AT ANOTHER HOSPITAL. I ASKED PATIENT IF HE WAS GETTING IT FOR BREAKTHROUGH PAIN WITH DILAUDID INCLUDED REGIMEN. PER PATIENT HE COULDN'T REMEMBER. PAIN MANAGEMENT PLAN EXPLAINED TO THE PATIENT HE INSISTED ON WAITING FOR DILAUDID. EDUCATED ON PAIN SCALE AND AVAILABILITY OF PRN TORADOL IF NEEDED INSTEAD OF HIM BEING IN PAIN AND WAITING EVERY 6HOURS FOR DILAUDID. PATIENT FINALLY REQUESTED TORADOL FOR BREAKTHROUGH PAIN. HE VOICED SOME RELIEVE OF PAIN. AT THIS TIME PATIENT ASLEEP RESTING COMFORTABLY.
[2025-03-09] MEDS: hydroMORPHone 1 MG INJ IVP PRN (10:53)
--- NOTE | 2025-03-09 11:00 | NUR ---
CCTA Per Rasheeda from CT, Coronary angio only done M-F. CT aware but must be retimed to show on CT board in am. Must be retimed to Monday. Retimed for 03/10 0600.
--- NOTE | 2025-03-09 15:34 | PN ---
[facility] PROGRESS NOTE Date of Service: March 09, 2025 Time of Service: 15:33 SUBJECTIVE: [ ] 03/08 patient was seen and examined. He appears comfortable but complains of left sided pain especially near the armpit. He denies any other complaint 03/09 patient was seen and examined. Earlier he had lot of pain in his left upper extremity. Dilaudid was increased to 1 mg with great improvement in his pain symptoms. He denies any dizziness or other complaints REVIEW OF SYSTEMS CONSTITUTIONAL: Denies fevers, chills, or night sweats. No unintentional weight loss reported. NEUROLOGICAL: reports having numbness of the left upper extremity with tingling ENT: No hearing loss, otalgia, otorrhea, rhinitis, rhinorrhea, hoarseness, or sore throat. CARDIOVASCULAR: chest pain, chest wall pain PULMONARY: Denies any shortness of breath, cough, phlegm/sputum, hemoptysis, pleuritic chest pain. SLEEP: Denies morning headaches, daytime somnolence or napping. Denies difficulty falling asleep, staying asleep, waking from sleep. Denies knowledge of snoring. GASTROINTESTINAL: Denies any type of dysphagia to either liquids or solids. Denies nausea, vomiting, pyrosis, early satiety, abdominal pain, diarrhea, constipation, or changes in stool consistency or caliber. Denies coffee-ground emesis, hematemesis, hematochezia, or melanotic stools. GENITOURINARY: Denies frequency, urgency, nocturia, hematuria or incontinence (Storage/Irritative symptoms.) Low urinary stream, straining to void, urinary intermittency or hesitancy, splitting of the voiding stream, terminal dribbling. ENDOCRINOLOGIC: Denies polyuria, polydipsia, polyphagia or heat/cold intolerances. HEMATOLOGIC: Denies thrombophilia/previous clots, or coagulopathy/bleeding disorders. ONCOLOGIC: Denies personal history of malignancy. DERMATOLOGIC: Denies rashes or pruritus. PSYCHIATRIC: Denies any suicidal or homicidal ideation. Denies hallucinations. PHYSICAL EXAM GENERAL APPEARANCE: The patient is awake, alert, and oriented, in no acute cardiopulmonary distress. NEUROLOGICAL: Cranial nerves II-XII grossly intact. Motor is 5/5 in bilateral upper and lower extremities proximal to distal. No sensory deficits. HEENT: Face is symmetric. Pupils are equal and reactive. Extraocular movements are intact. NECK: Supple. No JVD. No thyromegaly. No submental, submandibular, pre- /postauricular, occipital or supraclavicular lymphadenopathy. CHEST: Normal chest expansion. No Telemetry. LUNGS: Absence of any rales, rhonchi or any wheezing. CARDIOVASCULAR: Regular. S1 and S2 normal. No appreciable rubs, murmurs or gallops. tenderness to palpation of the left axilla noted ABDOMEN: Soft, nontender, and nondistended. There is no rebound, voluntary guarding, or rigidity. : Deferred. No Winter. EXTREMITIES: Non-edematous and not cyanotic. No clubbing. Good capillary refill. SKIN: No skin breakdown. Vital Signs (last 8hr) Date Time Temp Pulse Resp B/P (MAP) Pulse Ox O2 Delivery O2 Flow Rate FiO2 03/09/25 11:34 98.4 73 17 138/69 99 Room Air 03/09/25 08:08 98.1 62 18 143/83 98 Room Air 03/09/25 07:59 98 Room Air* 0 21 LABS: Laboratory: Test 03/08/25 05:39 Range/Units White Blood Count 5.8 # 4.8-10.8 K/uL Red Blood Count 4.18 L 4.50-6.20 MIL/uL Hemoglobin 12.6 L 14.0-18.0 g/dL Hematocrit 37.9 L 42-54 % Mean Corpuscular Volume 90.7 79-99 fL Mean Corpuscular Hemoglobin 30.1 27.0-33.0 pg Mean Corpuscular Hemoglobin Concent 33.2 32.0-36.0 g/dL Red Cell Distribution Width 12.8 11.0-15.5 % Platelet Count 220 130-400 K/uL Mean Platelet Volume 9.9 7.5-10.5 fL Immature Granulocyte % (Auto) 0.3 0-1 % Neutrophils (%) (Auto) 42.4 40.0-77.0 % Lymphocytes (%) (Auto) 39.0 21.0-51.0 % Monocytes (%) (Auto) 9.4 3.0-13.0 % Eosinophils (%) (Auto) 8.0 0.0-8.0 % Basophils (%) (Auto) 0.9 0.0-5.0 % Neutrophils # (Auto) 2.5 1.8-7.7 K/uL Lymphocytes # (Auto) 2.3 1.0-4.8 K/uL Monocytes # (Auto) 0.6 0.1-1.0 K/uL Eosinophils # (Auto) 0.47 0.00-0.70 K/uL Basophils # (Auto) 0.05 0.00-0.20 K/uL Absolute Immature Granulocyte (auto 0.02 0-1 K/uL Nucleated Red Blood Cells 0.0 0.0-0.19 % Sodium Level 141 136-145 mmol/L Potassium Level 4.3 3.5-5.1 mmol/L Chloride Level 105 101-111 mmol/L Carbon Dioxide Level 29 21-32 mmol/L Blood Urea Nitrogen 12 7-18 mg/dL Creatinine 0.9 0.5-1.3 mg/dL Glomerular Filtration Rate Calc 114 >90 mL/min Random Glucose 90 70-105 mg/dL Total Calcium 8.5 8.5-10.1 mg/dL Magnesium Level 2.00 1.80-2.40 mg/dL Total Bilirubin 0.4 # 0.2-1.0 mg/dL Aspartate Amino Transf (AST/SGOT) 63 H 10-37 U/L Alanine Aminotransferase (ALT/SGPT) 44 # 12-78 U/L Alkaline Phosphatase 55 50-136 U/L Total Creatine Kinase 1295 #*H 21-232 U/L Total Protein 6.5 # 6.0-8.3 g/dL Albumin 3.5 # 3.5-5.0 g/dL Current Medications Medications (Trade) Dose Ordered Sig/James Route PRN Reason Start Time Stop Time Status Last Admin Dose Admin Acetaminophen (TYLenol 325MG TAB) 650 mg Q6H PRN PO MILD PAIN (1-3) 03/07/25 12:00 04/06/25 11:59 Enoxaparin Sodium (Lovenox) 40 mg DAILY SQ 03/08/25 09:00 04/07/25 08:59 03/09/25 07:59 40 MG Famotidine (Pepcid 20mg Vial) 20 mg Q12H IV 03/07/25 12:00 04/06/25 11:59 03/09/25 10:53 20 MG Hydromorphone HCl (DiLAUDid 0.5MG INJ) 0.5 mg Q6H PRN IVP SEVERE PAIN (7-10) 03/07/25 14:00 03/09/25 10:18 DC 03/09/25 07:59 0.5 MG Hydromorphone HCl (DiLAUDid 1MG INJ) 1 mg Q6H PRN IVP SEVERE PAIN (7-10) 03/09/25 10:30 03/14/25 10:29 03/09/25 10:53 1 MG Ketorolac Tromethamine (toRADol) 30 mg Q8H6 PRN IVP BREAKTHROUGH SEVERE PAIN(7-10) 03/08/25 17:00 03/13/25 16:59 03/09/25 03:53 30 MG Lactated Ringer's 1,000 ml @ 150 mls/hr Q6H40M IV 03/07/25 12:00 04/06/25 11:59 03/09/25 15:08 150 MLS/HR Magnesium Sulfate 50 ml @ 0 mls/hr PROTOCOL IV 03/07/25 12:00 04/06/25 11:59 Morphine Sulfate (morPHINE 2MG SYG) 2 mg Q6H PRN IVP SEVERE PAIN (7-10) 03/07/25 12:00 03/07/25 13:46 DC Potassium Chloride 100 ml @ 100 mls/hr AD PRN IV POTASSIUM PROTOCOL 03/07/25 12:00 04/06/25 11:59 Potassium Chloride (K-Dur/Klor-Con 20meq) 20 meq AD PRN PO POTASSIUM PROTOCOL 03/07/25 12:00 04/06/25 11:59 Potassium Chloride (KCl 10% Elixir 20meq/15ml) 20 meq AD PRN PO POTASSIUM PROTOCOL 03/07/25 12:00 04/06/25 11:59 DIAGNOSTICS / RADIOLOGY: [ ] ASSESSMENT: Acute rhabdomyolysis, POA Atypical chest pain ongoing for the past several months, POA Nonresolving intermittent episodes of numbness of the left upper extremity, POA Family history of lupus, POA Family history of coronary artery disease, POA Prolonged QTC, POA Presyncope, POA History of vertebral osteomyelitis about 10 years ago status post treatment, POA History of seizure with last episode being three years ago, POA History of cannabis use, POA PLAN: Patient will be admitted to medical-surgical floor under telemetry monitoring We will start IV hydration with lactated Ringer's at 150 mL/hour for management of acute rhabdomyolysis We will provide patient with a dose of Toradol to see if it helps with the pain, morphine for management of severe pain Initial troponin was noted to be negative, we will have Cardiology evaluate We will follow up 2D echocardiogram Consultation with Neurology will be requested for further evaluation of intermittent numbness of the left upper extremity, we will see if MRI is requested this admission We will obtain autoimmune serologies including JASWANT w/ reflex profile, rheumatoid factor, CCP, we will obtain blood cultures, we will inflammatory markers including ESR, CRP, TSH We will see how patient progresses in the next 48-72 hours All labs will be repeated in the morning Date of service: 03/07/2025 Rohan Daniels Advanced Care Planning: Which of the following were discussed: Hospice care: Yes __ No _x_ Therapeutic options: Yes _x_ No __ Advance directives: Yes _x_ No __ Other discussions: Discussed with who?: Patient Voluntary nature of this service was explained to the patient? Yes _x_ No __ Amount of time spent: 20 minutes BALA SULLIVAN MD March 09, 2025 15:34
--- NOTE | 2025-03-09 20:32 | PN ---
CARDIOLOGY Reason for consult: Atypical left-sided arm numbness, chest discomfort HPI/story at presentation: This is a pleasant 34-year-old male with past medical history as below started to have issues with left-sided arm numbness, atypical pain, shortness of breath, flushing feeling and came to the ER for further evaluation management. Has a history of anxiety and a family history of lupus Subjective: 03/07/2025 no active cardiac complaints Past medical history: See below Allergies, Meds See chart Review of systems Review of Systems Constitutional: Negative for chills and fever. HENT: Negative for ear discharge and ear pain. Eyes: Negative for photophobia and discharge. Respiratory: Negative for cough, sputum production and stridor. Cardiovascular: Negative for chest pain and palpitations. Gastrointestinal: Negative for diarrhea and vomiting. Genitourinary: Negative for frequency. Musculoskeletal: Negative for myalgias. Skin: Negative for rash. Neurological: Negative for focal weakness and seizures. Endo/Heme/Allergies: Negative for polydipsia. Psychiatric/Behavioral: Negative for hallucinations. Vitals see chart PHYSICAL EXAMINATION GENERAL: The patient is alert and oriented*3 HEENT: Nonicteric sclerae, non traumatic HEART: Regular rate and rhythm with no murmurs LUNGS: Clear to auscultation bilaterally ABDOMEN: No acute issues, non tender GENITAL, RECTAL: deferred SKIN: No rash NEUROLOGIC: NFND EXTREMITIES: No edema ASSESSMENT ATYPICAL CHEST PAIN With associated diaphoresis/feeling TIA-like features Left upper extremity numbness RHABDOMYOLYSIS Elevated CK presentation Recently started working CORE MEASURES OTHER MEDICAL PROBLEMS Family history of lupus PLAN 03/07/2025 will get a coronary CTA to further evaluate for any potential c ardiovascular source of symptoms although, symptoms are fairly atypical. Agree with rheumatological and other related workup. Echocardiogram was within normal limits. Seen and examined by 925 around 1800. 03/08/2025 Echocardiogram is normal, CTA coronary has been ordered and pending. Further recs post. Seen and examined 03/08/2025 around 1800. 03/09/2025 CTA still pending, further recommendations on the basis of CT. Multiple questions answered. Seen and examined 03/09/2025 around 1800. ATTESTATION I was involved substantially in the care of this patient Number and complexity of problems addressed: 1 acute illness with systemic features Amount and or complexity of data Review of prior external note(s) from each unique source: 2+ Ordering of each unique test : 0 Review of the result(s) of each unique test: 2+ Assessment requiring an independent historian(s): No Independent interpretation of test performed by another MD/QHCP/appropriate source (not separately reported) : No Discussion of management or test interpretation with external MD/QHCP/appropriate source (not separately reported) : No Risk status (cardiac, billing related):Moderate Vitals/Labs Vital Signs Date Time Temp Pulse Resp B/P (MAP) Pulse Ox O2 Delivery O2 Flow Rate FiO2 03/09/25 20:00 98.1 64 17 137/63 99 Room Air 03/09/25 07:59 0 21 Medications Current Medications Diazepam 2 mg ONCE ONCE PO Last administered on 03/07/25at 10:12; Start 03/07/25 at 10:00; Stop 03/07/25 at 10:01; Status DC Sodium Chloride 1,000 ml @ 0 mls/hr ONCE ONCE IV Last administered on 03/07/25at 12:56; Start 03/07/25 at 11:30; Stop 03/07/25 at 11:33; Status DC Ketorolac Tromethamine 15 mg ONCE ONCE IV Last administered on 03/07/25at 13:13; Start 03/07/25 at 12:00; Stop 03/07/25 at 12:19; Status DC Acetaminophen 650 mg Q6H PRN PO; Start 03/07/25 at 12:00; Stop 04/06/25 at 11:59 Lactated Ringer's 1,000 ml @ 150 mls/hr Q6H40M IV Last administered on 03/09/25at 15:08; Start 03/07/25 at 12:00; Stop 04/06/25 at 11:59 Famotidine 20 mg Q12H IV Last administered on 03/09/25at 10:53; Start 03/07/25 at 12:00; Stop 04/06/25 at 11:59 Morphine Sulfate 2 mg Q6H PRN IVP; Start 03/07/25 at 12:00; Stop 03/07/25 at 13:46; Status DC Potassium Chloride 100 ml @ 100 mls/hr AD PRN IV; Start 03/07/25 at 12:00; Stop 04/06/25 at 11:59 Potassium Chloride 20 meq AD PRN PO; Start 03/07/25 at 12:00; Stop 04/06/25 at 11:59 Potassium Chloride 20 meq AD PRN PO; Start 03/07/25 at 12:00; Stop 04/06/25 at 11:59 Magnesium Sulfate 50 ml @ 0 mls/hr PROTOCOL IV; Start 03/07/25 at 12:00; Stop 04/06/25 at 11:59 Enoxaparin Sodium 40 mg DAILY SQ Last administered on 03/09/25at 07:59; Start 03/08/25 at 09:00; Stop 04/07/25 at 08:59 Hydromorphone HCl 0.5 mg Q6H PRN IVP Last administered on 03/09/25at 07:59; Start 03/07/25 at 14:00; Stop 03/09/25 at 10:18; Status DC Hydromorphone HCl 0.5 mg ONCE ONCE IVP Last administered on 03/07/25at 18:58; Start 03/07/25 at 18:30; Stop 03/07/25 at 18:31; Status DC Ketorolac Tromethamine 30 mg Q8H6 PRN IVP Last administered on 03/09/25at 03:53; Start 03/08/25 at 17:00; Stop 03/13/25 at 16:59 Hydromorphone HCl 1 mg Q6H PRN IVP Last administered on 03/09/25at 17:13; Start 03/09/25 at 10:30; Stop 03/14/25 at 10:29 RAFAEL PORTILLO MD March 09, 2025 20:32
[2025-03-10] VITALS: BP 114/85; PULSE 57; RESP 17; TEMP 97.6
[2025-03-10 04:00] VITALS: BP 112/71; PULSE 56; RESP 17; TEMP 97.9
[2025-03-10 04:18] LABS: BASOPHILS # (AUTO) 0.07 K/uL (0.00-0.20); BASOPHILS % (AUTO) 0.9 % (0.0-5.0); EOSINOPHILS % (AUTO) 5.4 % (0.0-8.0); HEMATOCRIT 39.7 % (42-54); IMMATURE GRANULOCYTE ABSOLUTE 0.01 K/uL (0-1); LYMPHOCYTES # (AUTO) 2.4 K/uL (1.0-4.8); LYMPHOCYTES % (AUTO) 31.8 % (21.0-51.0); MEAN CORPUSCULAR HEMOGLOBIN 30.1 pg (27.0-33.0); MEAN CORPUSCULAR HGB CONC 34.3 g/dL (32.0-36.0); MEAN CORPUSCULAR VOLUME 87.8 fL (79-99); MONOCYTES # (AUTO) 0.8 K/uL (0.1-1.0); MONOCYTES % (AUTO) 10.2 % (3.0-13.0); NEUTROPHILS # (AUTO) 3.8 K/uL (1.8-7.7); NEUTROPHILS % (AUTO) 51.6 % (40.0-77.0); PLATELET COUNT (AUTO) 243 K/uL (130-400); RED BLOOD CELL COUNT(AUTO) 4.52 MIL/uL (4.50-6.20); RED CELL DISTRIBUTION WIDTH 12.4 % (11.0-15.5); WHITE BLOOD COUNT (AUTO) 7.4 K/uL (4.8-10.8)
[2025-03-10 04:49] LABS: ALBUMIN 3.9 g/dL (3.5-5.0); BILIRUBIN,TOTAL 0.4 mg/dL (0.2-1.0); CREATININE 1.1 mg/dL (0.5-1.3); TOTAL PROTEIN, SERUM 6.9 g/dL (6.0-8.3)
[2025-03-10 08:00] VITALS: BP 118/69; PULSE 59; RESP 18; TEMP 97.8
[2025-03-10] MEDS ORDERED: IOHEXOL 350 MG/ML 100ML INFUS..BTL IV ONE (11:32)
[2025-03-10] MEDS ORDERED: metoPROLOL tartRATE 1 MG/ML 5ML VIAL IV ONE (11:46)
--- NOTE | 2025-03-10 12:00 | NUR ---
Pt returns from CT angio This mortgage loan underwriter notified Dr Ritchie of the procedure having been completed.
[2025-03-10 12:16] VITALS: BP 118/92; PULSE 58; RESP 20; TEMP 98
--- NOTE | 2025-03-10 13:09 | HMCIMG ---
CT OF THE CHEST WITH CONTRAST- CT Cardiac Angio co-interpretation This is done as part of the CT cardiac angiogram study. The interpretation of the coronary arteries will be done by bicycle technician in a separate report. History: over-read Comparison: none CT Dose Index (CTDI): 77.90 mGy Dose Length Product (DLP): 493.40 total mGy PROTOCOL: Examination is done at 2.5 millimeter volumetric acquisition after contrast administration with Isovue 370, 100 cc IV, without complications. Photography is done at 5 millimeter thick intervals for the thorax. The examination begins above the heart and therefore the lung apices are incompletely included. The rest of the left lung is included but the right lung is only included up to its middle third. The periphery of the right lung is not included in the study. FINDINGS: The visualized part of the airway is preserved. The bony and soft tissue structures of the chest wall are unremarkable. The aorta is unremarkable. No mediastinal lymphadenopathy is seen. The lung windows demonstrate no worrisome pulmonary nodules, masses or infiltrates. There is no evidence of pulmonary embolism in the visualized lung segments. The upper abdominal views are unremarkable. Impression: No significant abnormalities identified.
--- NOTE | 2025-03-10 14:45 | PN ---
[facility] PROGRESS NOTE Date of Service: March 10, 2025 Time of Service: 14:35 SUBJECTIVE: 03/08 patient was seen and examined. He appears comfortable but complains of left sided pain especially near the armpit. He denies any other complaint 03/09 patient was seen and examined. Earlier he had lot of pain in his left upper extremity. Dilaudid was increased to 1 mg with great improvement in his pain symptoms. He denies any dizziness or other complaints 03/10 - patient seen at bedside. States there is improvement in his pain of left upper extremity. Patient is pending CTA results. Will follow recommendations per cardiology. Remarkable labs: WBC 7.4, H and H stable, platelets 243K. CK down from 1295 to 422. electrolytes within normal limits. BUN 17, creatinine 1.1, AST down from 63 to 39, ALT down from 44 to 37. Immunology testing pending results. Patient remains on LR 150ml/hr, Dilaudid 1mg for pain. REVIEW OF SYSTEMS CONSTITUTIONAL: Denies fevers, chills, or night sweats. No unintentional weight loss reported. NEUROLOGICAL: reports having numbness of the left upper extremity with tingling CARDIOVASCULAR: chest pain, chest wall pain PULMONARY: Denies any shortness of breath, cough, phlegm/sputum, hemoptysis, pleuritic chest pain. GASTROINTESTINAL: Denies any type of dysphagia to either liquids or solids. Denies nausea, vomiting, pyrosis, early satiety, abdominal pain, diarrhea, constipation, or changes in stool consistency or caliber. Denies coffee-ground emesis, hematemesis, hematochezia, or melanotic stools. ENDOCRINOLOGIC: Denies polyuria, polydipsia, polyphagia or heat/cold intolerances. HEMATOLOGIC: Denies thrombophilia/previous clots, or coagulopathy/bleeding disorders. ONCOLOGIC: Denies personal history of malignancy. DERMATOLOGIC: Denies rashes or pruritus. PHYSICAL EXAM GENERAL APPEARANCE: The patient is awake, alert, and oriented, in no acute cardiopulmonary distress. NEUROLOGICAL: Cranial nerves II-XII grossly intact. Motor is 5/5 in bilateral upper and lower extremities proximal to distal. No sensory deficits. HEENT: Face is symmetric. Pupils are equal and reactive. Extraocular movements are intact. NECK: Supple. No JVD. CHEST: Normal chest expansion. No Telemetry. LUNGS: Absence of any rales, rhonchi or any wheezing. CARDIOVASCULAR: Regular. S1 and S2 normal. No appreciable rubs, murmurs or gallops. tenderness to palpation of the left axilla noted ABDOMEN: Soft, nontender, and nondistended. There is no rebound, voluntary guarding, or rigidity. : Deferred. No Winter. EXTREMITIES: Non-edematous and not cyanotic. No clubbing. Good capillary refill. SKIN: No skin breakdown. Vital Signs (last 8hr) Date Time Temp Pulse Resp B/P (MAP) Pulse Ox O2 Delivery O2 Flow Rate FiO2 03/10/25 12:16 98.1 58 20 118/92 99 Room Air 21 03/10/25 09:46 Room Air* 0 21 03/10/25 08:00 97.9 59 18 118/69 100 Room Air LABS: Laboratory: Test 03/10/25 04:06 Range/Units White Blood Count 7.4 4.8-10.8 K/uL Red Blood Count 4.52 4.50-6.20 MIL/uL Hemoglobin 13.6 L 14.0-18.0 g/dL Hematocrit 39.7 L 42-54 % Mean Corpuscular Volume 87.8 79-99 fL Mean Corpuscular Hemoglobin 30.1 27.0-33.0 pg Mean Corpuscular Hemoglobin Concent 34.3 32.0-36.0 g/dL Red Cell Distribution Width 12.4 11.0-15.5 % Platelet Count 243 130-400 K/uL Mean Platelet Volume 9.9 7.5-10.5 fL Immature Granulocyte % (Auto) 0.1 0-1 % Neutrophils (%) (Auto) 51.6 40.0-77.0 % Lymphocytes (%) (Auto) 31.8 21.0-51.0 % Monocytes (%) (Auto) 10.2 3.0-13.0 % Eosinophils (%) (Auto) 5.4 0.0-8.0 % Basophils (%) (Auto) 0.9 0.0-5.0 % Neutrophils # (Auto) 3.8 1.8-7.7 K/uL Lymphocytes # (Auto) 2.4 1.0-4.8 K/uL Monocytes # (Auto) 0.8 0.1-1.0 K/uL Eosinophils # (Auto) 0.40 0.00-0.70 K/uL Basophils # (Auto) 0.07 0.00-0.20 K/uL Absolute Immature Granulocyte (auto 0.01 0-1 K/uL Nucleated Red Blood Cells 0.0 0.0-0.19 % Sodium Level 141 136-145 mmol/L Potassium Level 4.0 3.5-5.1 mmol/L Chloride Level 105 101-111 mmol/L Carbon Dioxide Level 29 21-32 mmol/L Blood Urea Nitrogen 17 7-18 mg/dL Creatinine 1.1 0.5-1.3 mg/dL Glomerular Filtration Rate Calc 90 >90 mL/min Random Glucose 88 70-105 mg/dL Total Calcium 8.6 8.5-10.1 mg/dL Total Bilirubin 0.4 0.2-1.0 mg/dL Aspartate Amino Transf (AST/SGOT) 39 H 10-37 U/L Alanine Aminotransferase (ALT/SGPT) 37 12-78 U/L Alkaline Phosphatase 59 50-136 U/L Total Creatine Kinase 422 #*H 21-232 U/L C-Reactive Protein, Quantitative 2.90 0.5-3.0 mg/L Total Protein 6.9 6.0-8.3 g/dL Albumin 3.9 3.5-5.0 g/dL Current Medications Medications (Trade) Dose Ordered Sig/James Route PRN Reason Start Time Stop Time Status Last Admin Dose Admin Acetaminophen (TYLenol 325MG TAB) 650 mg Q6H PRN PO MILD PAIN (1-3) 03/07/25 12:00 04/06/25 11:59 Enoxaparin Sodium (Lovenox) 40 mg DAILY SQ 03/08/25 09:00 04/07/25 08:59 03/10/25 08:03 40 MG Famotidine (Pepcid 20mg Vial) 20 mg Q12H IV 03/07/25 12:00 04/06/25 11:59 03/10/25 13:10 20 MG Hydromorphone HCl (DiLAUDid 0.5MG INJ) 0.5 mg Q6H PRN IVP SEVERE PAIN (7-10) 03/07/25 14:00 03/09/25 10:18 DC 03/09/25 07:59 0.5 MG Hydromorphone HCl (DiLAUDid 1MG INJ) 1 mg Q6H PRN IVP SEVERE PAIN (7-10) 03/09/25 10:30 03/14/25 10:29 03/10/25 13:11 1 MG Ketorolac Tromethamine (toRADol) 30 mg Q8H6 PRN IVP BREAKTHROUGH SEVERE PAIN(7-10) 03/08/25 17:00 03/13/25 16:59 03/09/25 03:53 30 MG Lactated Ringer's 1,000 ml @ 150 mls/hr Q6H40M IV 03/07/25 12:00 04/06/25 11:59 03/10/25 05:58 150 MLS/HR Magnesium Sulfate 50 ml @ 0 mls/hr PROTOCOL IV 03/07/25 12:00 04/06/25 11:59 Morphine Sulfate (morPHINE 2MG SYG) 2 mg Q6H PRN IVP SEVERE PAIN (7-10) 03/07/25 12:00 03/07/25 13:46 DC Potassium Chloride 100 ml @ 100 mls/hr AD PRN IV POTASSIUM PROTOCOL 03/07/25 12:00 04/06/25 11:59 Potassium Chloride (K-Dur/Klor-Con 20meq) 20 meq AD PRN PO POTASSIUM PROTOCOL 03/07/25 12:00 04/06/25 11:59 Potassium Chloride (KCl 10% Elixir 20meq/15ml) 20 meq AD PRN PO POTASSIUM PROTOCOL 03/07/25 12:00 04/06/25 11:59 DIAGNOSTICS / RADIOLOGY: [ ] ASSESSMENT: Acute rhabdomyolysis, POA Atypical chest pain ongoing for the past several months, POA Nonresolving intermittent episodes of numbness of the left upper extremity, POA Family history of lupus, POA Family history of coronary artery disease, POA Prolonged QTC, POA Presyncope, POA History of vertebral osteomyelitis about 10 years ago status post treatment, POA History of seizure with last episode being three years ago, POA History of cannabis use, POA PLAN: medical-surgical floor under telemetry monitoring Continue IV hydration with lactated Ringer's at 150 mL/hour for management of acute rhabdomyolysis Will follow Cardiology recommendations Will follow Neurology recommendations for further evaluation of intermittent numbness of the left upper extremity, we will see if MRI is requested this admission Pending autoimmune serologies including JASWANT w/ reflex profile, rheumatoid factor, CCP, All labs will be repeated in the morning Advanced Care Planning: Which of the following were discussed: Hospice care: Yes __ No _x_ Therapeutic options: Yes _x_ No __ Advance directives: Yes _x_ No __ Other discussions: Discussed with who?: Patient Voluntary nature of this service was explained to the patient? Yes _x_ No __ Amount of time spent: 20 minutes ATTESTATION BY PHYSICIAN I have seen and examined the patient. I reviewed the documentation, medical decision making, and treatment plan as noted by the resident provider above. I agree with the findings and plan of care. Vinnie Ritchie MD, PRIYA N March 10, 2025 14:45
[2025-03-10] MEDS ORDERED: DULO30CA52 PO (15:15)
--- NOTE | 2025-03-10 15:47 | DS ---
Discharge Summary Hospital Course Summary: Patient is a 34-year-old male with history of anxiety and seizures (last seizure3 years ago) who presented to the emergency department with a chief complaint of left-sided axillary and chest pain of 3-4 months' duration. The pain, which he rates as 7/10 on arrival, has been progressive in intensity and radiates to the left shoulder. He also reported intermittent episodes of numbness affecting the left arm and forearm, along with transient episodes of left hand becoming pale and cold. The patient noted that he had undergone advanced imaging within the past 5-6 months. He mentioned previous use of BuSpar, which was discontinued due to adverse side effects, and reported intermittent marijuana use. Upon admission, laboratory studies revealed findings consistent with acute rhabdomyolysis, while cardio troponin levels were negative. An EKG showed normal sinus rhythm with a prolonged QTC interval. 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 Cardiology was consulted and d etermined that from a cardiac standpoint, the patient is safe for discharge. Neurology was also consulted, recommending the discontinuation of gabapentin and the initiation of duloxetine 30 mg once daily for pain management. Additionally, Neurology suggested a referral for physical or occupational therapy evaluation for further assess and manage a suspected left brachial plexopathy. The patient's hospital course was notable for supportive management of his acute rhabdomyolysis, and his symptoms were stabilized with conservative measures. He was educated regarding medication adjustments and follow up care. The patient is discharged in stable condition with recommendations to follow up with his primary care provider, Cardiology, and Neurology, as well as undergo PT OT evaluation for ongoing management of his left upper extremity symptoms. College Advisor(s): Cardiology Neurology Procedure(s): [address] [id number] IMAGING REPORT Signed PATIENT: RAMILA PERALTA MR#: [id number] : 1990 SEX: M AGE: 34 LOCATION: [facility] ORDER 2300 STATUS: ADM IN REPORT#: [id number] SERVICE 0600 REASON: Chest pain, Dr. stockton to read ORDERING PHYSICIAN: RAFAEL PORTILLO MD PROCEDURE: CTCAWC - CT CARDIAC ANGIO W/CONT. CCTA CT OF THE CHEST WITH CONTRAST- CT Cardiac Angio co-interpretation This is done as part of the CT cardiac angiogram study. The interpretation of the coronary arteries will be done by tongue trimmer in a separate report. History: over-read Comparison: none CT Dose Index (CTDI): 77.90 mGy Dose Length Product (DLP): 493.40 total mGy PROTOCOL: Examination is done at 2.5 millimeter volumetric acquisition after contrast administration with Isovue 370, 100 cc IV, without complications. Photography is done at 5 millimeter thick intervals for the thorax. The examination begins above the heart and therefore the lung apices are incompletely included. The rest of the left lung is included but the right lung is only included up to its middle third. The periphery of the right lung is not included in the study. FINDINGS: The visualized part of the airway is preserved. The bony and soft tissue structures of the chest wall are unremarkable. The aorta is unremarkable. No mediastinal lymphadenopathy is seen. The lung windows demonstrate no worrisome pulmonary nodules, masses or infiltrates. There is no evidence of pulmonary embolism in the visualized lung segments. The upper abdominal views are unremarkable. Impression: No significant abnormalities identified. DICTATED BY: GOYO RAYGOZA MD DATE: 03/10/25 130 ELECTRONICALLY SIGNED BY: GOYO RAYGOZA MD DATE: 03/10/[address] [address] IMAGING REPORT Signed PATIENT: RAMILA PERALTA MR#: [id number] : 1990 SEX: M AGE: 34 LOCATION: [facility] ORDER 1312 STATUS: ADM IN REPORT#: [id number] SERVICE 1311 REASON: r/o left brachial plexus injury, hx of numbness and pain to left shoulder ORDERING PHYSICIAN: SANTHOSH WELLS MD PROCEDURE: RU LT WWO - MR SHOULDER LEFT WWO Exam Type: MRI OF THE CERVICAL SPINE with and without GADOLINIUM and MRI of the shoulder with special attention to the left brachial plexus Clinical Information: r/o left brachial plexus injury, hx of numbness and pain to left shoulder Comparison: None FINDINGS: There is straightening of the spine consistent with spasm No fractures or dislocations are identified. Vertebral body height and disc height is preserved at all levels. The bone marrow signal is normal for age. The spinal canal contents are preserved. The paraspinal muscles and other tissues show no significant abnormalities. Evaluation of the cervical spine by level: C1-C2: There is no spinal canal stenosis. No disc protrusion or extrusion is noted. There is no neural foraminal stenosis, impingement, or narrowing. C2-C3: There is no spinal canal stenosis. No disc protrusion or extrusion is noted. There is no neural foraminal stenosis, impingement, or narrowing. C3-C4: There is no spinal canal stenosis. No disc protrusion or extrusion is noted. There is no neural foraminal stenosis, impingement, or narrowing. C4-C5: There is no spinal canal stenosis. No disc protrusion or extrusion is noted. There is no neural foraminal stenosis, impingement, or narrowing. C5-C6: There is no spinal canal stenosis. No disc protrusion or extrusion is noted. There is no neural foraminal stenosis, impingement, or narrowing. C6-C7: There is a central zone disc protrusion causing mild central spinal canal stenosis. No nerve root impingement is seen. C7-T1: There is no spinal canal stenosis. No disc protrusion or extrusion is noted. There is no neural foraminal stenosis, impingement, or narrowing. The structures of the brachial plexus on the left side are intact. There is no evidence of nerve root avulsion. No evidence of injury of the brachial plexus is identified. After contrast administration there is no abnormal enhancement. Impression: Mild central zone disc protrusion C6-7. No brachial plexus injury. DICTATED BY: GOYO RAYGOZA MD DATE: 03/08/25924 ELECTRONICALLY SIGNED BY: GOYO RAYGOZA MD DATE: 03/08/[address] [address] IMAGING REPORT Signed PATIENT: RAMILA PERALTA MR#: [id number] : 1990 SEX: M AGE: 34 LOCATION: [facility] ORDER 1311 STATUS: ADM IN REPORT#: [id number] SERVICE 1306 REASON: intermittent numbness of left arm/ forearm with pain ORDERING PHYSICIAN: SANTHOSH WELLS MD PROCEDURE: C SPN WWO - MR SPINAL CANAL, CERV W/WO CON Exam Type: MRI OF THE CERVICAL SPINE with and without GADOLINIUM and MRI of the shoulder with special attention to the left brachial plexus Clinical Information: r/o left brachial plexus injury, hx of numbness and pain to left shoulder Comparison: None FINDINGS: There is straightening of the spine consistent with spasm No fractures or dislocations are identified. Vertebral body height and disc height is preserved at all levels. The bone marrow signal is normal for age. The spinal canal contents are preserved. The paraspinal muscles and other tissues show no significant abnormalities. Evaluation of the cervical spine by level: C1-C2: There is no spinal canal stenosis. No disc protrusion or extrusion is noted. There is no neural foraminal stenosis, impingement, or narrowing. C2-C3: There is no spinal canal stenosis. No disc protrusion or extrusion is noted. There is no neural foraminal stenosis, impingement, or narrowing. C3-C4: There is no spinal canal stenosis. No disc protrusion or extrusion is noted. There is no neural foraminal stenosis, impingement, or narrowing. C4-C5: There is no spinal canal stenosis. No disc protrusion or extrusion is noted. There is no neural foraminal stenosis, impingement, or narrowing. C5-C6: There is no spinal canal stenosis. No disc protrusion or extrusion is noted. There is no neural foraminal stenosis, impingement, or narrowing. C6-C7: There is a central zone disc protrusion causing mild central spinal canal stenosis. No nerve root impingement is seen. C7-T1: There is no spinal canal stenosis. No disc protrusion or extrusion is noted. There is no neural foraminal stenosis, impingement, or narrowing. The structures of the brachial plexus on the left side are intact. There is no evidence of nerve root avulsion. No evidence of injury of the brachial plexus is identified. After contrast administration there is no abnormal enhancement. Impression: Mild central zone disc protrusion C6-7. No brachial plexus injury. DICTATED BY: GOYO RAYGOZA MD DATE: 03/08/2525 ELECTRONICALLY SIGNED BY: GOYO RAYGOZA MD DATE: 03/08/[address] [address] IMAGING REPORT Signed PATIENT: RAMILA PERALTA MR#: [id number] : 1990 SEX: M AGE: 34 LOCATION: [facility] ORDER 1212 STATUS: ADM IN REPORT#: [id number] SERVICE 1159 REASON: chest pain, drYaneth siv to read ORDERING PHYSICIAN: SANTHOSH WELLS MD PROCEDURE: ECHO CMP - ECHO 2-D COMPLETE APPROVED REPORT EXAM: Two-dimensional and M-mode echocardiogram with Doppler and color Doppler. INDICATION ICD: Chest Pain 2D Dimensions RVDd 3.5 cm LVEF(%) 68.6 (>50%) LVED Vol(simp.) 130.0 mL IVSd 0.9 (0.7-1.1cm) FS(%) 39 % LVES Vol(simp.) 48.0 mL LVDd 5.4 (3.8-5.6cm) LA (2D) 4.2 (1.6-4.0cm) LVEF(%, simp.) 63 % PWd 1.3 (0.7-1.1cm) Ao Root(2D) 3.1 (2.0-3.7cm) LA ESV INDEX (BP) 47.79 mL/m2 LVDs 3.3 (2.5-4.0cm) LVOT diam 2.4 (1.8-2.4cm) IVC diam 2.5 cm Deformation Strain Apical 4 -18.6 % Apical 2 -17.3 % Apical 3 -20.1 % Global Strain -18.7 % M-Mode Dimensions EPSS 1.0 cm LA (MM) 4.4 (1.6-4.0cm) Ao Root(MM) 3.4 (2.0-3.7cm) Aortic Valve AoV Vmax 1.2 m/s Ao Peak GR 6.2 mmHg LVOT Vmax 1.2 m/s AoV VTI 0.3 m Ao Mean GR 3.4 mmHg LVOT VTI 0.26 m LES (VMAX) 4.11 cm2 LES (VTI) 4.1 cm2 Mitral Valve MV E Vmax 68.5 cm/s DECEL Time 160 ms MV A Vmax 51.3 cm/s P 1/2 T 64 ms E/A ratio 1.3 MVA (PHT) 3.5 cm2 TDI E/E' Medial 6.3 E/E' Lateral 5.0 Medial E' Peak V 10.82 cm/s Lateral E' Peak V 13.60 cm/s Pulmonary Valve PV Vmax 0.8 m/s PV VTI 0.23 m PV Mean GR 1.8 mmHg PV Peak GR 2.8 mmHg Tricuspid Valve TR Vmax 1.7 m/s RVSP 11.5 mmHg TR Peak GR 11.5 mmHg Left Ventricle The left ventricle is normal size. Normal wall motion There is normal left ventricular wall thickness. LVEF is 60-65%. The left ventricular diastolic function is normal. Right Ventricle The right ventricle is normal size. The right ventricular systolic function is normal. Atria The left atrium is moderately dilated. The right atrium is moderately dilated. Aortic Valve The aortic valve is normal in structure. No aortic regurgitation is present. There is no aortic valvular stenosis. Mitral Valve The mitral valve is normal in structure. There is no mitral valve regurgitation noted. There is no mitral valve stenosis. Tricuspid Valve The tricuspid valve is normal in structure. There is mild tricuspid valve regurgitation noted. Pulmonic Valve The pulmonary valve is normal in structure. There is no pulmonic valvular regurgitation. Great Vessels The aortic root is normal in size. The IVC is dilated and collapses >50% with inspiration. Pericardium There is no pericardial effusion. Conclusion LVEF is 60-65%. The left ventricular diastolic function is normal. There is normal left ventricular wall thickness. The left ventricle is normal size. The left atrium is moderately dilated. There is no pericardial effusion. Normal pulmonary pressuers Study quality was adequate DICTATED BY: RAFAEL PORTILLO MD DATE: 03/07/25 1317 ELECTRONICALLY SIGNED BY: RAFAEL PORTILLO MD DATE: 03/08/[address] [place] [id number] IMAGING REPORT Signed PATIENT: RAMILA PERALTA MR#: [id number] : 1990 SEX: M AGE: 34 LOCATION: [facility] ORDER 1 STATUS: REG ER REPORT#: [id number] SERVICE 0 REASON: CP ORDERING PHYSICIAN: FROYLAN JOHNSON MD PROCEDURE: CXR1VW - CHEST 1VW Exam Type: CHEST 1VW Clinical Information: CP Comparison: None Findings: The lungs are clear of infiltrates. The heart is normal in size. The bony and soft tissue structures of the chest are unremarkable. Impression: Clear lungs. DICTATED BY: GOYO RAYGOZA MD DATE: 03/07/251024 ELECTRONICALLY SIGNED BY: GOYO RAYGOZA MD DATE: 03/07/251027 Assessment/Plan: ASSESSMENT: Acute rhabdomyolysis, POA Atypical chest pain ongoing for the past several months, POA Nonresolving intermittent episodes of numbness of the left upper extremity, POA Family history of lupus, POA Family history of coronary artery disease, POA Prolonged QTC, POA Presyncope, POA History of vertebral osteomyelitis about 10 years ago status post treatment, POA History of seizure with last episode being three years ago, POA History of cannabis use, POA Discharge Instructions: Follow up with PCP in 3-5 days. Recommend PT/OT New Medications: Duloxetine HCl (Duloxetine HCl) 30 Mg Capsule.dr 1 CAP PO DAILY for 30 Days, #30 CAP 0 Refills Time spent arranging discharge: 1-30 minutes ATTESTATION BY PHYSICIAN I have seen and examined the patient. I reviewed the documentation, medical decision making, and treatment plan as noted by the resident provider above. I agree with the findings and plan of care. Vinnie Ritchie MD, PRIYA N March 10, 2025 15:47
--- NOTE | 2025-03-10 16:12 | NUR ---
Discharge instructions given and explained to the patient. PIV is removed. All belongings are packed by the patient and his . The patient is then wheeled downstairs in a wheelchair and they departed in a a private vehicle.
--- NOTE | 2025-03-10 16:35 | PN ---
CARDIOLOGY Reason for consult: Atypical left-sided arm numbness, chest discomfort HPI/story at presentation: This is a pleasant 34-year-old male with past medical history as below started to have issues with left-sided arm numbness, atypical pain, shortness of breath, flushing feeling and came to the ER for further evaluation management. Has a history of anxiety and a family history of lupus Subjective: 03/07/2025 no active cardiac complaints Past medical history: See below Allergies, Meds See chart Review of systems Review of Systems Constitutional: Negative for chills and fever. HENT: Negative for ear discharge and ear pain. Eyes: Negative for photophobia and discharge. Respiratory: Negative for cough, sputum production and stridor. Cardiovascular: Negative for chest pain and palpitations. Gastrointestinal: Negative for diarrhea and vomiting. Genitourinary: Negative for frequency. Musculoskeletal: Negative for myalgias. Skin: Negative for rash. Neurological: Negative for focal weakness and seizures. Endo/Heme/Allergies: Negative for polydipsia. Psychiatric/Behavioral: Negative for hallucinations. Vitals see chart PHYSICAL EXAMINATION GENERAL: The patient is alert and oriented*3 HEENT: Nonicteric sclerae, non traumatic HEART: Regular rate and rhythm with no murmurs LUNGS: Clear to auscultation bilaterally ABDOMEN: No acute issues, non tender GENITAL, RECTAL: deferred SKIN: No rash NEUROLOGIC: NFND EXTREMITIES: No edema ASSESSMENT ATYPICAL CHEST PAIN With associated diaphoresis/feeling TIA-like features Left upper extremity numbness RHABDOMYOLYSIS Elevated CK presentation Recently started working CORE MEASURES OTHER MEDICAL PROBLEMS Family history of lupus PLAN 03/07/2025 will get a coronary CTA to further evaluate for any potential cardiovascular source of symptoms although, symptoms are fairly atypical. Agree with rheumatological and other related workup. Echocardiogram was within normal limits. Seen and examined by 925 around 1800. 03/08/2025 Echocardiogram is normal, CTA coronary has been ordered and pending. Further recs post. Seen and examined 03/08/2025 around 1800. 03/09/2025 CTA still pending, further recommendations on the basis of CT. Multiple questions answered. Seen and examined 03/09/2025 around 1800. 03/10/2025 CTA from today showed mild disease of the RCA, can be managed conservatively from a cardiac standpoint. Follow-up in the office. His factor modification was discussed extensively. Appreciate primary team. Seen and examined 03/10/2025 at around 1400. ATTESTATION I was involved substantially in the care of this patient Number and complexity of problems addressed: 1 acute illness with systemic features Amount and or complexity of data Review of prior external note(s) from each unique source: 2+ Ordering of each unique test : 0 Review of the result(s) of each unique test: 2+ Assessment requiring an independent historian(s): No Independent interpretation of test performed by another MD/QHCP/appropriate source (not separately reported) : No Discussion of management or test interpretation with external MD/QHCP/appropriate source (not separately reported) : No Risk status (cardiac, billing related):Moderate Vitals/Labs Vital Signs Date Time Temp Pulse Resp B/P (MAP) Pulse Ox O2 Delivery O2 Flow Rate FiO2 03/10/25 12:16 98.1 58 20 118/92 99 Room Air 21 03/10/25 09:46 0 Laboratory Tests 03/10/25 04:06 Medications Current Medications Diazepam 2 mg ONCE ONCE PO Last administered on 03/07/25at 10:12; Start 03/07/25 at 10:00; Stop 03/07/25 at 10:01; Status DC Sodium Chloride 1,000 ml @ 0 mls/hr ONCE ONCE IV Last administered on 03/07/25at 12:56; Start 03/07/25 at 11:30; Stop 03/07/25 at 11:33; Status DC Ketorolac Tromethamine 15 mg ONCE ONCE IV Last administered on 03/07/25at 13:13; Start 03/07/25 at 12:00; Stop 03/07/25 at 12:19; Status DC Acetaminophen 650 mg Q6H PRN PO; Start 03/07/25 at 12:00; Stop 03/10/25 at 16:26; Status DC Lactated Ringer's 1,000 ml @ 150 mls/hr Q6H40M IV Last administered on 03/10/25at 05:58; Start 03/07/25 at 12:00; Stop 03/10/25 at 16:26; Status DC Famotidine 20 mg Q12H IV Last administered on 03/10/25at 13:10; Start 03/07/25 at 12:00; Stop 03/10/25 at 16:26; Status DC Morphine Sulfate 2 mg Q6H PRN IVP; Start 03/07/25 at 12:00; Stop 03/07/25 at 13:46; Status DC Potassium Chloride 100 ml @ 100 mls/hr AD PRN IV; Start 03/07/25 at 12:00; Stop 03/10/25 at 16:26; Status DC Potassium Chloride 20 meq AD PRN PO; Start 03/07/25 at 12:00; Stop 03/10/25 at 16:26; Status DC Potassium Chloride 20 meq AD PRN PO; Start 03/07/25 at 12:00; Stop 03/10/25 at 16:26; Status DC Magnesium Sulfate 50 ml @ 0 mls/hr PROTOCOL IV; Start 03/07/25 at 12:00; Stop 03/10/25 at 16:26; Status DC Enoxaparin Sodium 40 mg DAILY SQ Last administered on 03/10/25at 08:03; Start 03/08/25 at 09:00; Stop 03/10/25 at 16:26; Status DC Hydromorphone HCl 0.5 mg Q6H PRN IVP Last administered on 03/09/25at 07:59; Start 03/07/25 at 14:00; Stop 03/09/25 at 10:18; Status DC Hydromorphone HCl 0.5 mg ONCE ONCE IVP Last administered on 03/07/25at 18:58; Start 03/07/25 at 18:30; Stop 03/07/25 at 18:31; Status DC Ketorolac Tromethamine 30 mg Q8H6 PRN IVP Last administered on 03/09/25at 03:53; Start 03/08/25 at 17:00; Stop 03/10/25 at 16:26; Status DC Hydromorphone HCl 1 mg Q6H PRN IVP Last administered on 03/10/25at 13:11; Start 03/09/25 at 10:30; Stop 03/10/25 at 16:26; Status DC Iohexol 35,000 mg STK-MED ONCE IV; Start 03/10/25 at 11:32; Stop 03/10/25 at 11:32; Status DC Metoprolol Tartrate 5 mg STK-MED ONCE IV; Start 03/10/25 at 11:46; Stop 03/10/25 at 11:46; Status DC RAFAEL PORTILLO MD March 10, 2025 16:35
--- NOTE | 2025-03-11 03:07 | CARDIOLOGY ---
RAD REPORT: [facility] CT ANGIO RADIOLOGY REPORT: CORONARY CT ANGIOGRAPHY DATE: March 11, 2025 QUALITY: Excellent CLINICAL HISTORY AND INDICATION: [ ] TECHNIQUE: After obtaining a preliminary waredresser image, contrast imaging performed on an Aquillon [id number] scanner. A dedicated, limited window, coronary imaging protocol was used, with single breath-hold, retrospective ECG gating, and au tomated arrhythmia rejection. 100 cc of low osmolar contrast agent: Omnipaque 350 was delivered via a 18-gauge IV catheter in the right antecubital fossa, using a power injector and followed by 60 cc of normal saline bolus as a chaser. Collimated images were reformatted at 0.5 mm intervals, and sent to an offline independent workstation for interpretation, using 3D anatomic reconstructions: Curved multiplanar reconstructions, maximum intensity projections, and multiplanar imaging. No metoprolol was administered prior to scanning due to low baseline heart rate. 0.4 mg SL nitroglycerin was given. CORONARY ARTERY DESCRIPTIONS: The coronary arteries arise in normal position. Left main coronary artery: Normal caliber vessel that bifurcates into the LAD and LCx. No stenosis. Left anterior descending coronary artery: Normal caliber vessel and gives rise to diagonal and septal branches. No stenosis. Left circumflex coronary artery: Normal caliber, nondominant and gives rise to a large OM branch. No stenosis. Right coronary artery: Large, dominant vessel giving rise to the PL and PDA branches.Mild calcification, no significant stenosis CONCLUSION: The coronary arteries arise in normal position. No significant CAD Normal EF 69% RAFAEL PORTILLO MD March 11, 2025 03:07
== END 2025-03-10 16:25 | disposition home or self-care (01) | DRG 558 ==
LOC: EDH 09:19 → EDHIP 11:24 → 4DH 15:15
PROVIDERS: ADMIT Internal Medicine; ATTEND Internal Medicine
DX: M62.82 Rhabdomyolysis (principal); F41.9 Anxiety disorder, unspecified; R07.89 Other chest pain; R56.9 Unspecified convulsions; R04.0 Epistaxis; T36.0X5A Adverse effect of penicillins, initial encounter; F12.10 Cannabis abuse, uncomplicated; G51.0 Bell's palsy; Z82.69 Family history of other diseases of the musculoskeletal system and connective tissue; Z82.49 Family history of ischemic heart disease and other diseases of the circulatory system; Z82.3 Family history of stroke; Z83.3 Family history of diabetes mellitus; M50.223 Other cervical disc displacement at C6-C7 level; R20.8 Other disturbances of skin sensation
CPT/HCPCS: 36415; 71045; 72156; 73223; 75574; 80048; 80053; 80076; 80305; 81001; 82550; 83615; 83735; 83880; 84145; 84439; 84443; 84481; 84484; 85025; 85610; 85651; 85730; 86038; 86140; 86200; 86215; 86235; 86431; 87040; 93005; 93306; 93356; 99285; G0378; J1171; J1650; J1885; J3490; J7030; J7120; Q9967